=== PATIENT | female | born 1940 | race Caucasian/White ===

== ENCOUNTER → 2020-12-20 15:11 | Outpatient (BNVA) | payer MEDICARE, SELFPAY | PROVIDERS: Family Provider Family Medicine; PCP Family Medicine; Referring Provider Registered Nurse; Visit Provider Internal Medicine | DX: M81.0 Age-related osteoporosis without current pathological fracture (principal); N18.9 Chronic kidney disease, unspecified; F32.9 Major depressive disorder, single episode, unspecified; Z79.899 Other long term (current) drug therapy | CPT/HCPCS: 99204 ==

== ENCOUNTER 2020-12-28 14:08 | Outpatient (CLI) | payer MEDICARE, SELFPAY ==
--- NOTE | 2020-12-28 14:38 | XR_ITS ---
WS: [id number] DEXA (DUAL ENERGY X-RAY ABSORPTIOMETRY) Bone mineral density was performed using a [employer] machine. HISTORY: osteoporosis COMPARISON: None available. Left forearm BMD: 0.769 g/cm2. T score: -1.2 Z score: 1.5 Total hip BMD: Right: 0.832. T score: -1.4 Z score: 0.5 10 year probability of a major osteoporotic fracture is 29%. XR/XR DEXA axial skeleton* [id number] IMPRESSION: OSTEOPENIA based upon the WHO classification for females.
== END 2020-12-28 14:09 | disposition home or self-care (01) ==
PROVIDERS: PCP Registered Nurse; Visit Provider Internal Medicine
DX: M81.0 Age-related osteoporosis without current pathological fracture (principal); M85.89 Other specified disorders of bone density and structure, multiple sites
CPT/HCPCS: 77080

== ENCOUNTER → 2020-12-29 09:34 | Outpatient (BNVA) | payer MEDICARE, SELFPAY | PROVIDERS: PCP Registered Nurse; Referring Provider Registered Nurse; Visit Provider Orthopaedic Surgery | DX: M25.562 Pain in left knee (principal); M77.8 Other enthesopathies, not elsewhere classified | CPT/HCPCS: 73560; 73565 ==

== ENCOUNTER 2020-12-29 10:30 | Outpatient (CLI) | payer MEDICARE, SELFPAY ==
[2020-12-29 11:48] LABS: Anion Gap 14.1 (5-19); Blood Urea Nitrogen 24 mg/dL (8-23); Calcium 9.8 mg/dL (8.5-10.5); Carbon Dioxide 23 mmol/L (22-29); Chloride 106 mmol/L (98-107); Glucose 117 mg/dL (65-115); Osmolality Calculated 293 mOsm/kg (285-295); Potassium 4.1 mmol/L (3.5-5.1); Sodium 139 mmol/L (136-145); Thyroid Stimulating Hormone 2.58 uIU/mL (0.27-4.20)
[2020-12-29 12:02] LABS: Calcium 9.9 mg/dL (8.5-10.5)
[2020-12-29 12:44] LABS: Parathyroid Hormone 24.3 pg/mL (15-65)
== END 2020-12-29 10:31 | disposition home or self-care (01) ==
PROVIDERS: PCP Registered Nurse; Visit Provider Internal Medicine
DX: M81.0 Age-related osteoporosis without current pathological fracture (principal); N18.9 Chronic kidney disease, unspecified
CPT/HCPCS: 36415; 80048; 82310; 83970; 84443

== ENCOUNTER 2021-05-18 08:22 | Observation (INO) | payer MEDICARE, SELFPAY ==
[2021-05-18] VITALS (13 sets, daily range): BP systolic 106–150; BP diastolic 52–74; PULSE 87–113; RESP 16–19; TEMP 36.7–36.8; O2SAT 91–98; BMI 26.6
--- NOTE | 2021-05-18 08:25 | CT_ITS ---
WS: [id number] CT ABDOMEN PELVIS TECHNIQUE: Contrast-enhanced CT of the abdomen and pelvis with coronal and sagittal reformatted image s. CLINICAL INFORMATION: abd pain COMPARISON: None. DLP: 1476.[address] scans at [facility] use at least one of these dose optimization techniques: automated e xposure control; mA and/or kV adjustment per patient size (includes targeted exams where dose is matc hed to clinical indication); or iterative reconstruction. FINDINGS:No free fluid in the pelvis. Prior appendectomy. Normal sigmoid colon. No evidence of high-grade small or large bowel obstruction. A few air-fluid lev els in normal caliber transverse colon. Diffuse fatty infiltration liver. Normal portal vein and splenic vein. Normal spleen. Splenic granul omas. Large esophageal hiatal hernia with intrathoracic stomach. Subsegmental atelectasis in the lung bases. Normal pancreas. Adrenal glands are normal. Normal renal parenchymal enhancement. No hydronep hrosis. Left renal cyst measuring 2.5 cm. No Moderate aortic calcification. Left JEFF. Pedicle screw fixation L4-5 with interbody fusion graft.Small left adnexal cyst measuring 1 [address]/CT abdomen pelvis w con* [id number] IMPRESSION: 1. Mild diffuse fatty infiltration the liver. 2. Large esophageal hiatal hernia with partial intrathoracic stomach. 3. Normal sigmoid colon. A few air-fluid levels in the transverse colon. No ev idence of high-grade small or large bowel obstruction. 4. Prior appendectomy. 5. Normal caliber abdominal aorta. 6. No free fluid in the abdomen or pelvis. 7. Small left adnexal cyst measuring 1.7 x 1.6 cm
--- NOTE | 2021-05-18 08:25 | XR_ITS ---
WS: [id number] Portable AP upright chest, 05/18/2021 Clinical Data: dyspnea/cough Comparison: Portable chest, 02/07/2013. Findings: No nodules, masses or effusions are seen. The heart is normal. The pulmonary vascularity is not increased. No pneumonia or pneumothorax is seen. The aortic arch and descending aorta show minim al calcification. There is a large hiatal hernia behind the heart. XR/XR chest 1V portable [id number] Impression: 1. Atherosclerosis. 2. Large hiatal hernia.
--- NOTE | 2021-05-18 08:25 | ECG_ITS ---
[facility] Test Date: 2021-05-18 Pat Name: Pretty Caban Department: Room: Gender: Female Financial Representative: : 1940 Requested By: Porfirio Moreno Order Number: [id number] Sole MD: Jocelyn Jiménez M.D. Measurements Intervals [place] Rate: 89 P: 25 OR: 174 QRS: 50 QRSD: 79 T: 8 QT: 354 QTc: 431 Interpretive Statements SINUS RHYTHM SEPTAL MYOCARDIAL INFARCTION , OF INDETERMINATE AGE [40+ ms Q WAVE IN V1/V2] No previous ECG available for comparison Electronically Signed On 05-18-2021 17:03:48 CDT by Jocelyn Jiménez M.D. [id number]
--- NOTE | 2021-05-18 09:12 | W.ED.GIBLEED ---
HPI - GI Bleed General: Chief complaint: GI Bleed Stated complaint: GI BLEED Time Seen by Provider: 05/18/21 08:25 History of Present Illness: HPI Narrative: 81-year-old female presents emergency room complaining of midline aches stools for the last 12 hours. 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 She has had a history of these problems in the past. 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 MD complaint: melena Onset (ago): hour(s) (12) Relieving factors: none Exacerbating factors: none Context: history of GI bleed Associated symptoms: Denies abdominal pain, chills, easy bruising, epistaxis, fever(s), headache(s), malaise, nausea, other bleeding, poor appetite, rash, syncope, vomiting or weakness Treatments Prior to Arrival: none Review of Systems Const: Denies: fever(s), chills or malaise ENMT: Denies: epistaxis Card: Denies: syncope Resp: Denies: dyspnea, productive cough or non-productive cough GI: Denies: abdominal pain, nausea or vomiting : Denies: flank pain, difficulty voiding, dysuria, urinary frequency or urinary urgency Skin/Breast: Denies: rash Neuro: Denies: headache(s) Tre/Lymph: Denies: easy bruising [facility] ED PFSH: Medical History Anxiety and depression Arthritis Chronic anemia Chronic fatigue XOCHITL (generalized anxiety disorder) GERD (gastroesophageal reflux disease) Hyperlipidemia Hypertension Insomnia Intractable migraine without aura Moderate episode of recurrent major depressive disorder Seasonal affective disorder Surgical History History of carpal tunnel release History of total knee arthroplasty History of total right knee replacement (TKR) 11/01/2017 Family History Other Psychiatric illness Social History Smoking and tobacco status: never smoked Second hand smoke exposure: Yes Alcohol intake: current Alcohol intake frequency: holidays/special occasions only Physical Exam Const: COMMON NORMALS: no acute distress GENERAL APPEARANCE: cooperative and comfortable ORIENTATION/CONSCIOUSNESS: Yes awake, Yes oriented to person, Yes oriented to place and Yes oriented to time HENMT: COMMON NORMALS: normocephalic, atraumatic and hearing grossly normal bilaterally HEAD & SCALP: normocephalic and atraumatic Neck/C-Spine: COMMON NORMALS: no JVD Resp: COMMON NORMALS: normal respiratory effort, No retractions, No use of accessory muscles and clear to auscultation bilaterally AUSCULTATION: clear to auscultation bilaterally Cardio: COMMON NORMALS: no JVD, regular rate, regular rhythm and No murmurs present (Cardio) RATE: regular rate RHYTHM: regular rhythm GI: COMMON NORMALS: Soft to palpation and No hepatosplenomegaly present AUSCULTATION: Yes normoactive bowel sounds PALPATION: Yes Soft to palpation, No Tenderness to palpation present (GI), No Guarding due to palpation present (GI) and Yes No hepatosplenomegaly present Extremity: COMMON NORMALS: normal to inspection, capillary refill normal, no clubbing, cyanosis or edema, no calf tenderness and no pedal edema Neuro: SENSORIUM/ORIENTATION: Yes oriented to person, Yes oriented to place and Yes oriented to time Skin: COMMON NORMALS: no rashes or lesions noted GENERAL SKIN EXAM: no rashes or lesions noted Course Vital Signs: Vital signs: Vital Signs Temperature 98.0 F 05/18/21 08:41 Pulse Rate 87 05/18/21 10:20 Respiratory Rate 16 05/18/21 10:20 Blood Pressure 107/63 05/18/21 10:20 Pulse Oximetry 97 05/18/21 10:20 MDM - GI Bleed MDM Narrative: Medical decision making narrative: Reviewed imaging and labs on the chart. Reviewed with patient will go ahead and admit and transfuse discussed Dr. Oliver as well. Lab Data: Labs: Lab Results 05/18/21 05/18/21 05/18/21 Range/Units 09:10 09:10 09:10 WBC 8.9 (4.0-10.0) 10^3/ uL RBC 2.76 L (4.1-5.3) 10^6/u L Hgb 6.9 L (11.5-15.3) g/dL Hct 24.1 L (37.0-47.0) % MCV 87.3 (81-99) fl MCH 25.0 L (28.0-34.0) pg MCHC 28.6 L (30.0-36.0) g/dL RDW 16.4 H (12.1-15.1) % Plt Count 256 (130-400) 10^3/c mm MPV 9.3 (7.4-10.4) fL Neut % (Auto) 61.0 % Lymph % (Auto) 24.9 % [place] % (Auto) 7.8 % Eos % (Auto) 5.6 % Baso % (Auto) 0.4 % Neut # (Auto) 5.44 (1.8-7.7) 10^3/u L Lymph # (Auto) 2.2 (0.8-4.8) 10^3/u L [place] # (Auto) 0.7 (0.2-0.9) 10^3/u L Eos # (Auto) 0.5 (0.0-0.8) 10^3/u L Baso # (Auto) 0.0 (0.0-0.1) 10^3/u L Nucleated RBC % (a uto) 0 % Nucleated RBCs # 0.0 /100WBC PT (12.1-14.9) SECO NDS INR (0.8-1.2) APTT (23.9-36.7) SECO NDS Sodium 140 (136-145) mmol/L Potassium 3.9 (3.5-5.1) mmol/L Chloride 107 (98-107) mmol/L Carbon Dioxide 22 (22-29) mmol/L Anion Gap 14.9 (5-19) BUN 28 H (8-23) mg/dL Creatinine 0.9 (0.5-0.9) mg/dL GFR Calculation Not Reportable Glucose 151 H (65-115) mg/dL Calculated Osmolal ity 298 H (285-295) mOsm/k g Lactic Acid 1.5 (0.5-2.2) mmol/L Calcium 9.3 (8.5-10.5) mg/dL Total Bilirubin 0.2 (0.15-1.2) mg/dL AST 10 (0-32) U/L ALT 9 (0-33) U/L Alkaline Phosphata se 59 (35-105) IU/L Total Protein 6.7 (6.6-8.7) g/dL Albumin 3.8 (3.5-5.2) g/dL Globulin 2.9 (1.3-4.6) g/dL Lipase 37 (13-60) U/L Urine Color (Yellow) Urine Appearance (CLEAR) Urine pH (5-7) Ur Specific Gravit y (1.005-1.030) Urine Protein (Negative) Urine Glucose (UA) (Normal) Urine Ketones (Negative) Urine Blood (Negative) Urine Nitrate (Negative) Urine Bilirubin (Negative) Urine Urobilinogen (Negative) mg/dL Ur Leukocyte Ritu ase (Negative) Blood Type Rho(D) Type Antibody Screen Crossmatch 05/18/21 05/18/21 05/18/21 Range/Units 09:10 09:10 10:13 WBC (4.0-10.0) 10^3/ uL RBC (4.1-5.3) 10^6/u L Hgb (11.5-15.3) g/dL Hct (37.0-47.0) % MCV (81-99) fl MCH (28.0-34.0) pg MCHC (30.0-36.0) g/dL RDW (12.1-15.1) % Plt Count (130-400) 10^3/c mm MPV (7.4-10.4) fL Neut % (Auto) % Lymph % (Auto) % [place] % (Auto) % Eos % (Auto) % Baso % (Auto) % Neut # (Auto) (1.8-7.7) 10^3/u L Lymph # (Auto) (0.8-4.8) 10^3/u L [place] # (Auto) (0.2-0.9) 10^3/u L Eos # (Auto) (0.0-0.8) 10^3/u L Baso # (Auto) (0.0-0.1) 10^3/u L Nucleated RBC % (a uto) % Nucleated RBCs # /100WBC PT 13.20 (12.1-14.9) SECO NDS INR 0.97 (0.8-1.2) APTT 23.0 L (23.9-36.7) SECO NDS Sodium (136-145) mmol/L Potassium (3.5-5.1) mmol/L Chloride (98-107) mmol/L Carbon Dioxide (22-29) mmol/L Anion Gap (5-19) BUN (8-23) mg/dL Creatinine (0.5-0.9) mg/dL GFR Calculation Glucose (65-115) mg/dL Calculated Osmolal ity (285-295) mOsm/k g Lactic Acid (0.5-2.2) mmol/L Calcium (8.5-10.5) mg/dL Total Bilirubin (0.15-1.2) mg/dL AST (0-32) U/L ALT (0-33) U/L Alkaline Phosphata se (35-105) IU/L Total Protein (6.6-8.7) g/dL Albumin (3.5-5.2) g/dL Globulin (1.3-4.6) g/dL Lipase (13-60) U/L Urine Color Yellow (Yellow) Urine Appearance Clear (CLEAR) Urine pH 5 (5-7) Ur Specific Gravit y 1.015 (1.005-1.030) Urine Protein Neg (Negative) Urine Glucose (UA) Norm (Normal) Urine Ketones Negative (Negative) Urine Blood Neg (Negative) Urine Nitrate Negative (Negative) Urine Bilirubin Neg (Negative) Urine Urobilinogen Norm (Negative) mg/dL Ur Leukocyte Ritu ase Negative (Negative) Blood Type A Positive Rho(D) Type Positive Antibody Screen Negative Crossmatch See Detail Discharge Plan Discharge Patient Disposition: Admitted As Inpatient Clinical Impression: Melena, Anemia, Arteriovenous malformation small bowel Condition: Stable Coding Level of Care Code ED Lehr Cutter for Nadjag Fwd Exam Comprehensive
[2021-05-18 09:29] LABS: Basophils % 0.4 %; Eosinophils # 0.5 10^3/uL (0.0-0.8); Eosinophils % 5.6 %; Hematocrit 24.1 % (37.0-47.0); Hemoglobin 6.9 g/dL (11.5-15.3); Lymphocytes # 2.2 10^3/uL (0.8-4.8); Lymphocytes % 24.9 %; Mean Corpuscular HGB Conc 28.6 g/dL (30.0-36.0); Mean Corpuscular Volume 87.3 fl (81-99); Mean Platelet Volume 9.3 fL (7.4-10.4); Monocytes # 0.7 10^3/uL (0.2-0.9); Monocytes % 7.8 %; Neutrophils # 5.44 10^3/uL (1.8-7.7); Nucleated Red Blood Cells % 0 %; Platelet Count 256 10^3/cmm (130-400); Red Blood Count 2.76 10^6/uL (4.1-5.3); Red Cell Distribution Width 16.4 % (12.1-15.1); White Blood Count 8.9 10^3/uL (4.0-10.0)
[2021-05-18 09:41] LABS: INR 0.97 (0.8-1.2)
[2021-05-18 09:45] LABS: Lactic Sepsis W/Reflex 1.5 mmol/L (0.5-2.2)
[2021-05-18 09:47] LABS: Alanine Aminotransferase 9 U/L (0-33); Albumin Level 3.8 g/dL (3.5-5.2); Alkaline Phosphatase 59 IU/L (35-105); Anion Gap 14.9 (5-19); Aspartate Amino Transferase 10 U/L (0-32); Blood Urea Nitrogen 28 mg/dL (8-23); Calcium 9.3 mg/dL (8.5-10.5); Carbon Dioxide 22 mmol/L (22-29); Chloride 107 mmol/L (98-107); Globulin 2.9 g/dL (1.3-4.6); Glucose 151 mg/dL (65-115); Lipase 37 U/L (13-60); Osmolality Calculated 298 mOsm/kg (285-295); Potassium 3.9 mmol/L (3.5-5.1); Sodium 140 mmol/L (136-145); Total Bilirubin 0.2 mg/dL (0.15-1.2); Total Protein 6.7 g/dL (6.6-8.7)
[2021-05-18] MEDS: pantoprazole 40 mg SDV 80 MG IVP (10:14)
[2021-05-18 10:20] LABS: Add Urine Microscopic? NO; Charge for UA Resulting for Rev
[2021-05-18 10:21] LABS: Bilirubin Urine Neg (Negative); Blood Urine Neg (Negative); Glucose Urine UA Norm (Normal); Ketones Urine Negative (Negative); Leukocyte Esterase Urine Negative (Negative); Nitrate Urine Negative (Negative); Protein Urine Neg (Negative); Specific Gravity, Urine 1.015 (1.005-1.030); Urine Appearance Clear (CLEAR); Urine Color Yellow (Yellow); Urobilinogen Urine Norm (Negative); pH Urine 5 (5-7)
[2021-05-18] MEDS: iohexol 300 mg/mL 100 mL Btl IV (10:33)
--- NOTE | 2021-05-18 11:42 | PC.PHAR ---
PTS VERIFIED MOST OF THE PTS MEDICATIONS-PTS STATES THE PT TAKES HER MEDICATIONS LIKE THE BOTTLE HAS SO WHATEVER [employer] FILLS IS WHAT THE PT TAKES PTS ALSO BROUGHT IN A MED LIST FROM WHEN THE PT WAS IN [place] THE HOSPITAL BUT THAT LIST DIDNT HAVE ALL THE PTS MEDICATIONS LISTED-CALLED [employer] AND GOT THE LIST THEY FILL-NOTES ARE MADE IN THE PHARMACY COMMENTS
--- NOTE | 2021-05-18 12:08 | PM.HP ---
Providers/Chief Complaint Primary Care Provider: CALVIN Jenkins Chief Complaint: GI BLEED History of Present Illness Niels Caban is a 81 year old female with hx of GERD, IBS, hiatal hernia and upper GI bleed. She reports she began to feel weak and short of breath yesterday afternoon and had a black tarry stool yesterday evening. She again reported melena this morning and came to the ER. She has a history of GI bleeds, the last episode was about 3 years ago and required transfusion. At that time she was found to have bleeding around her hiatal hernia on upper GI endoscopy. Chest x-ray in March showed worsening of the hiatal hernia. She has had no change in diet and only recalls 2 bad falls this week. She denies abdominal pain, hematochezia, and NSAID use. She is not taking anticoagulants. No hematemesis. Review of Systems General: Reports: 10 or more systems reviewed and unremarkable except in HPI and below Const: Denies: fever(s) Eyes: Denies: change in vision ENMT: Denies: throat pain Card: Denies: chest pain, palpitations or irregular heart rhythm Resp: Reports: dyspnea; Denies: productive cough or wheezing GI: Reports: heartburn, diarrhea and melena; Denies: abdominal pain, nausea, vomiting, hematemesis, coffee ground emesis or constipation : Denies: flank pain Musc: Denies: neck pain, back pain or extremity pain Skin/Breast: Denies: rash Neuro: Denies: headache(s) Psych: Denies: anxiety Endo: Denies: polyuria Tre/Lymph: Denies: easy bruising All/Imm: Denies: urticaria Medications/Allergies Home Medications Medication Instructions Recorded Confirmed Last Taken Type alprazolam 0.5 mg tablet 0.5 mg PO TID PRN tab 12/20/20 05/18/21 Unknown History amlodipine 5 mg tablet 5 mg PO DAILY 12/20/20 05/18/21 Unknown History aripiprazole 2 mg tablet 2 mg PO DAILY 12/20/20 05/18/21 Unknown History ascorbic acid (vitamin C) 500 mg 500 mg PO DAILY cap 12/20/20 05/18/21 Unknown History capsule dicyclomine 20 mg tablet 40 mg PO BID 12/20/20 05/18/21 Unknown History duloxetine 60 mg capsule,delayed 60 mg PO BID 12/20/20 05/18/21 Unknown History release lisinopril 20 mg tablet 20 mg PO DAILY 12/20/20 05/18/21 Unknown History loratadine 10 mg capsule 10 mg PO DAILY PRN 12/20/20 05/18/21 Unknown History mirtazapine 45 mg tablet 45 mg PO DAILY 12/20/20 05/18/21 Unknown History pantoprazole 40 mg tablet,delayed 40 mg PO BID 12/20/20 05/18/21 Unknown History release simvastatin 40 mg tablet 40 mg PO DAILY 12/20/20 05/18/21 Unknown History tizanidine 2 mg capsule 2 mg PO TID PRN 12/20/20 05/18/21 Unknown History topiramate 50 mg tablet See Rx Instructions .ROUTE .COMPLEX 12/20/20 05/18/21 Unknown History Probiotic 1 cap PO DAILY 05/18/21 05/18/21 Unknown History albuterol sulfate [ProAir HFA] 2 puff INHALATION Q6H PRN 05/18/21 05/18/21 Unknown History benzonatate 100 mg PO TID PRN 05/18/21 05/18/21 Unknown History calcium carbonate-vitamin D3 1 tab PO DAILY 05/18/21 05/18/21 Unknown History [Calcium + D] coffee xt-phosphatidyl serine 1 cap PO DAILY 05/18/21 05/18/21 Unknown History [Neuriva Original] fluticasone propionate [Flonase] 2 spray INTRANASAL DAILY PRN 05/18/21 05/18/21 Unknown History hydrochlorothiazide 12.5 - 25 mg PO DAILY 05/18/21 05/18/21 Unknown History trospium 20 mg PO DAILY 05/18/21 05/18/21 Unknown History vitamin E 1 cap PO DAILY 05/18/21 05/18/21 Unknown History Allergies Allergy/AdvReac Type Severity Reaction Status Date / Time aspirin [From Radha Aspirin] Allergy bleeding Verified 05/18/21 11:41 PFSH Acute PFSH: Medical History (Updated 05/18/21 @ 13:34 by Michael Gay MD) Anxiety and depression Arthritis Chronic anemia Chronic fatigue XOCHITL (generalized anxiety disorder) GERD (gastroesophageal reflux disease) Hyperlipidemia Hypertension Insomnia Intractable migraine without aura Moderate episode of recurrent major depressive disorder Seasonal affective disorder Surgical History History of carpal tunnel release History of total knee arthroplasty History of total right knee replacement (TKR) 11/01/2017 Family History Other Psychiatric illness Social History Smoking and tobacco status: never smoked Second hand smoke exposure: Yes Alcohol intake: current Alcohol intake frequency: holidays/special occasions only Vitals/I&O/Wt Last Vital Signs Temp 98.0 F 05/18/21 08:41 Pulse 87 05/18/21 10:20 Resp 16 05/18/21 10:20 BP 107/63 05/18/21 10:20 Pulse Ox 97 05/18/21 10:20 Weight last 48 hrs Weight 70.307 kg Physical Exam Narrative: EXAM NARRATIVE: General exam pale female in no apparent distress HEENT pupils reactive, oropharynx clear Neck supple no lymphadenopathy or JVD Cardio regular rate and rhythm no murmurs Respiratory clear to auscultation bilaterally no wheezes GI soft nontender with positive bowel sounds no organomegaly Extremities no cyanosis, clubbing. 1+ edema in lower extremities Skin no rash deferred Neuro: No obvious focal deficits. Data : 05/18/21 09:10 05/18/21 09:10 Other data: Blood type a positiveBlood type: A positive PT 13.20 INR 0.97 PTT 23 13.20 seconds ECG normal sinus rhythm Chest x-ray large hiatal hernia UA normal A&P Assessment and plan (1) Melena: Patient reports black tarry stools consistent with upper GI bleeding She has history of bleeding from her hiatal hernia in the past, possible Cory's ulcers. N.p.o. Protonix 40 mg IV every 12 hours Hydration Surgery consultation for possible EGD Status: Acute (2) Anemia: Transfusion 1 unit packed red blood cells Repeat hemoglobin following Further transfusions may be needed History consistent with acute blood loss anemia, but will check anemia panel as well. Status: Acute (3) GERD (gastroesophageal reflux disease): Protonix as above Status: Acute (4) Hypertension: Hold antihypertensives currently secondary to ongoing bleeding. Restart as indicated. Status: Acute Additional A&P Information Multiple other medical problems as outlined in the patient's past medical history. Full code SCDs for DVT prophylaxis, anticoagulation contraindicated secondary to GI bleeding. Attestations Medical Necessity Statement*: Will need greater than 2 midnight stay secondary to GI bleeding Time Spent in Patient Care: Greater than 35 minutes Coding Level of Care Code Acute Athletic Events Scorer for Chg Fwd Diagnoses Melena K92.1 Anemia D64.9 GERD (gastroesophageal reflux disease) K21.9 Hypertension I10
[2021-05-18 12:51] LABS: Ferritin 8 ng/mL (15-150); Iron 17 ug/dL (37-145); Percent Saturation 4.2 % (20-50); Total Iron Binding Capacity 396 mcg/dl; Unsaturated Iron Binding 379 ug/dL (112-347)
[2021-05-18 13:06] LABS: Vitamin B12 831 pg/mL (232-1245)
[2021-05-18 13:40] LABS: Folate Level > 20.0 ng/mL (4.8-37.3)
--- NOTE | 2021-05-18 15:25 | P.CONIM_ITS ---
Providers/Reason For Consult Consulting Physician/Specialty*: General Surgery Ryan Hernandez MD Reason for Consult*: Melena, anemia, history of multiple GI bleeding episodes. Requesting Physician: Genaro Gay Primary Care Provider: CALVIN Jenkins History of Present Illness History of Present Illness Niels Caban is a 81 year old female who developed black tarry stool last evening. She says that she was feeling dizzy, weak, and somewhat short of breath. This is happened to her multiple times in the past and she has been evaluated with what was felt to be an upper GI bleed on multiple occasions in [place], [place] and the [facility]. It sounds like pill endoscopy was even done at one point. She has been found to have a hiatal hernia that she says has gotten larger more recently. She denies any NSAID use. She has a proton pump inhibitor on her medication list but it still unclear whether or not she is taking this daily. It has been several years since she was looked at endoscopically and I was asked to discuss another EGD with her. Review of Systems General: Reports: 10 or more systems reviewed and unremarkable except in HPI and below Const: Denies: fever(s) Resp: Reports: dyspnea GI: Reports: melena; Denies: abdominal pain, nausea, vomiting or hematochezia Neuro: Reports: dizziness Meds/Allergies Home Medications and Allergies Home Medications Medication Instructions Recorded Confirmed Last Taken Type alprazolam 0.5 mg tablet 0.5 mg PO TID PRN tab 12/20/20 05/18/21 Unknown History amlodipine 5 mg tablet 5 mg PO DAILY 12/20/20 05/18/21 Unknown History aripiprazole 2 mg tablet 2 mg PO DAILY 12/20/20 05/18/21 Unknown History ascorbic acid (vitamin C) 500 mg 500 mg PO DAILY cap 12/20/20 05/18/21 Unknown History capsule dicyclomine 20 mg tablet 40 mg PO BID 12/20/20 05/18/21 Unknown History duloxetine 60 mg capsule,delayed 60 mg PO BID 12/20/20 05/18/21 Unknown History release lisinopril 20 mg tablet 20 mg PO DAILY 12/20/20 05/18/21 Unknown History loratadine 10 mg capsule 10 mg PO DAILY PRN 12/20/20 05/18/21 Unknown History mirtazapine 45 mg tablet 45 mg PO DAILY 12/20/20 05/18/21 Unknown History pantoprazole 40 mg tablet,delayed 40 mg PO BID 12/20/20 05/18/21 Unknown History release simvastatin 40 mg tablet 40 mg PO DAILY 12/20/20 05/18/21 Unknown History tizanidine 2 mg capsule 2 mg PO TID PRN 12/20/20 05/18/21 Unknown History topiramate 50 mg tablet See Rx Instructions .ROUTE .COMPLEX 12/20/20 05/18/21 Unknown History Probiotic 1 cap PO DAILY 05/18/21 05/18/21 Unknown History albuterol sulfate [ProAir HFA] 2 puff INHALATION Q6H PRN 05/18/21 05/18/21 Unknown History benzonatate 100 mg PO TID PRN 05/18/21 05/18/21 Unknown History calcium carbonate-vitamin D3 1 tab PO DAILY 05/18/21 05/18/21 Unknown History [Calcium + D] coffee xt-phosphatidyl serine 1 cap PO DAILY 05/18/21 05/18/21 Unknown History [Neuriva Original] fluticasone propionate [Flonase] 2 spray INTRANASAL DAILY PRN 05/18/21 05/18/21 Unknown History hydrochlorothiazide 12.5 - 25 mg PO DAILY 05/18/21 05/18/21 Unknown History trospium 20 mg PO DAILY 05/18/21 05/18/21 Unknown History vitamin E 1 cap PO DAILY 05/18/21 05/18/21 Unknown History Allergies Allergy/AdvReac Type Severity Reaction Status Date / Time aspirin [From Radha Aspirin] Allergy bleeding Verified 05/18/21 11:41 PFSH Acute PFSH: Medical History (Updated 05/18/21 @ 15:31 by Ryan Hernandez MD) Anxiety and depression Arthritis Chronic anemia Chronic fatigue XOCHITL (generalized anxiety disorder) GERD (gastroesophageal reflux disease) Hiatal hernia Hyperlipidemia Hypertension Insomnia Intractable migraine without aura Moderate episode of recurrent major depressive disorder Seasonal affective disorder Surgical History History of carpal tunnel release History of total knee arthroplasty History of total right knee replacement (TKR) 11/01/2017 Family History Other Psychiatric illness Social History Smoking and tobacco status: never smoked Second hand smoke exposure: Yes Alcohol intake: current Alcohol intake frequency: holidays/special occasions only Vitals/I&O/Wt Last Vital Signs Temp 98.1 F 05/18/21 13:51 Pulse 91 05/18/21 15:23 Resp 18 05/18/21 15:23 BP 115/65 05/18/21 15:23 Pulse Ox 93 05/18/21 15:23 05/18/21 05/18/21 05/18/21 06:59 14:59 22:59 Intake Total 0 / 0 Balance 0 / 0 Weight last 48 hrs Weight 155 lb Physical Exam Narrative: EXAM NARRATIVE: The patient was encountered in her room in the emergency department, waiting for a bed to open up upstairs. She does not appear to be in any acute distress and in fact is sleeping when I walk in the room. She was hard of hearing but was easily arousable. The pupils seem equal. No carotid bruits are heard. The lungs are clear. The heart seems regular. The abdomen is moderately obese but is soft. She has no appreciable tenderness and no obvious masses. The extremities reveal no significant edema. Neurologically the patient appears to be grossly intact. A&P Assessment and plan (1) Melena: The patient has had melena since last night. She has had some shortness of breath and dizziness, but she has had no abdominal symptoms. She is anemic and is currently being transfused. She has had multiple endoscopic/diagnostic procedures in the past. I once again discussed an EGD with the patient. She is in favor of proceeding. The rare risks of the procedure were gone over and she seems to understand. I am going to make sure the patient is n.p.o. after midnight tonight. We will proceed with an EGD tomorrow morning. Status: Acute (2) Anemia: Status: Acute (3) History of GI bleed: Status: Acute (4) Hiatal hernia: Status: Acute (5) GERD (gastroesophageal reflux disease): Status: Acute Consult Attestations Medical Necessity Statement: See admitting service's notation. Coding Level of Care Code Acute Railroad Wheels And Axle Inspector for [facility] Diagnoses Melena K92.1 Anemia D64.9 History of GI bleed Z87.19 Hiatal hernia K44.9 GERD (gastroesophageal reflux disease) K21.9
[2021-05-18] MEDS: sodium chloride 0.9% 1,000 ML 75 ML IV (15:51)
[2021-05-18] MEDS: sodium chloride 0.9% (100 ml) 100 ML 50 ML (18:24)
[2021-05-18 19:24] LABS: Hematocrit 26.9 % (37.0-47.0); Hemoglobin 8.1 g/dL (11.5-15.3)
[2021-05-18] MEDS: topiramate 100 mg Tablet PO (20:02)
[2021-05-18] MEDS: duloxetine 60 mg Capsule PO (20:02)
[2021-05-18] MEDS: pantoprazole 40 mg SDV IVP (21:15)
[2021-05-19] VITALS (11 sets, daily range): BP systolic 103–149; BP diastolic 54–79; PULSE 68–103; RESP 16–20; TEMP 36.4–37.3; O2SAT 92–98
[2021-05-19] MEDS: sodium chloride 0.9% 1,000 ML 75 ML IV (03:55)
[2021-05-19 05:51] LABS: Basophils # 0.1 10^3/uL (0.0-0.1); Basophils % 0.8 %; Eosinophils # 0.6 10^3/uL (0.0-0.8); Eosinophils % 6.3 %; Hematocrit 29.7 % (37.0-47.0); Hemoglobin 8.9 g/dL (11.5-15.3); Lymphocytes # 2.5 10^3/uL (0.8-4.8); Lymphocytes % 28.8 %; Mean Corpuscular Hemoglobin 26.7 pg (28.0-34.0); Mean Corpuscular Volume 89.2 fl (81-99); Mean Platelet Volume 9.3 fL (7.4-10.4); Monocytes # 0.8 10^3/uL (0.2-0.9); Monocytes % 9.5 %; Neutrophils # 4.72 10^3/uL (1.8-7.7); Neutrophils % 54.3 %; Nucleated Red Blood Cells % 0 %; Platelet Count 247 10^3/cmm (130-400); Red Blood Count 3.33 10^6/uL (4.1-5.3); Red Cell Distribution Width 16.1 % (12.1-15.1); White Blood Count 8.7 10^3/uL (4.0-10.0)
[2021-05-19 06:11] LABS: Alanine Aminotransferase 10 U/L (0-33); Alkaline Phosphatase 70 IU/L (35-105); Aspartate Amino Transferase 13 U/L (0-32); Blood Urea Nitrogen 19 mg/dL (8-23); Calcium 9.2 mg/dL (8.5-10.5); Carbon Dioxide 24 mmol/L (22-29); Chloride 106 mmol/L (98-107); Globulin 2.9 g/dL (1.3-4.6); Glucose 107 mg/dL (65-115); Osmolality Calculated 297 mOsm/kg (285-295); Sodium 142 mmol/L (136-145); Total Bilirubin 0.2 mg/dL (0.15-1.2); Total Protein 6.9 g/dL (6.6-8.7)
[2021-05-19] MEDS: sodium chloride 0.9% 1,000 ML 30 ML IV (07:37)
--- NOTE | 2021-05-19 08:05 | P.ANESASSM_ITS ---
Pre-Anesthetic Assessment Pre-Anesthetic Assessment: Height/Weight: Height 1.63 m Weight 70.307 kg Temp Pulse Resp BP Pulse Ox 97.6 F 103 H 20 H 149/79 93 05/19/21 07:04 05/19/21 07:04 05/19/21 07:04 05/19/21 07:04 05/19/21 07:04 Preop Diagnosis: GI bleed Proposed Procedure: Operation Date: 05/19/21 08:00 Proposed Procedures p EGD(Not Applicable) - Ryan Hernandez MD Familial anesthetic complications: none Was Beta Reilly taken within 24 hours: N/A Was Clonidine taken within 24 hours: N/A Last intake: Intake Last Liquid Date 05/18/21 Last Liquid Time 06:00 Last Solid Date 05/18/21 Last Solid Time 06:00 Last Intake: 23:00 Social: Social History: No alcohol and No tobacco Exam: Pre-Anes Outpt Exam: alert, oriented x 3, clear to auscultation bilaterally and regular rate & rhythm Airway: Submandibular: WNL Cervical ROM: WNL MP: 1 Dentition: False Pulmonary: Pulmonary: SOB CV/HEM: CV/HEM: Anemia and HTN : : None reported Hepatic: Hepatic: None reported GI: GI: GERD and Hiatus hernia Metabolic: Metabolic: None reported Musc/skel: Musc/skel: Lower Back Pain Neuropsych: Neuropsych: Anxiety and Depression Anesthetic Plan: ASA status: 3 Anesthesia: MAC Meds/Allergies Current Medications: Current Medications Generic Name Dose Route Start Last Admin Trade Name Freq PRN Reason Stop Dose Admin Duloxetine HCl 60 mg 05/18/21 18:00 05/18/21 20:02 Duloxetine 60 Mg Capsule PO 60 mg BID BETSY Administration Sodium Chloride 1,000 mls @ 75 ml s/hr 05/18/21 13:45 05/19/21 03:55 Sodium Chloride 0.9% IV 75 mls/hr .[id number] BETSY Administration Sodium Chloride 1,000 mls @ 30 ml s/hr 05/19/21 07:30 05/19/21 07:37 Sodium Chloride 0.9% IV 05/20/21 07:29 30 mls/hr .Q24H BETSY Administration Pantoprazole Sodiu m 40 mg 05/18/21 22:00 05/18/21 21:15 Pantoprazole 40 Mg Sdv IVP 40 mg Q12H BETSY Administration Topiramate 100 mg 05/18/21 20:00 05/18/21 20:02 Topiramate 100 M g Tablet PO 100 mg QPM BETSY Administration Topiramate 50 mg 05/19/21 06:00 05/19/21 05:08 Topiramate 100 M g Tablet PO Not Given QAM BETSY PFSH Anesthesia PFSH: Medical History (Updated 05/18/21 @ 15:31 by Ryan Hernandez MD) Anxiety and depression Arthritis Chronic anemia Chronic fatigue XOCHITL (generalized anxiety disorder) GERD (gastroesophageal reflux disease) Hiatal hernia Hyperlipidemia Hypertension Insomnia Intractable migraine without aura Moderate episode of recurrent major depressive disorder Seasonal affective disorder Surgical History History of carpal tunnel release History of total knee arthroplasty History of total right knee replacement (TKR) 11/01/2017 Family History Other Psychiatric illness Social History Smoking and tobacco status: never smoked Second hand smoke exposure: Yes Alcohol intake: current Alcohol intake frequency: holidays/special occasions only Data Anesthesia CBC & Chem 7: 05/19/21 04:57 05/19/21 04:57 Other Labs: Laboratory Results - last 48 hr 05/18/21 05/18/21 05/18/21 09:10 09:10 09:10 WBC 8.9 RBC 2.76 L Hgb 6.9 L Hct 24.1 L MCV 87.3 MCH 25.0 L MCHC 28.6 L RDW 16.4 H Plt Count 256 MPV 9.3 Neut % (Auto) 61.0 Lymph % (Auto) 24.9 Ashley % (Auto) 7.8 Eos % (Auto) 5.6 Baso % (Auto) 0.4 Neut # (Auto) 5.44 Lymph # (Auto) 2.2 Ashley # (Auto) 0.7 Eos # (Auto) 0.5 Baso # (Auto) 0.0 Nucleated RBC % (auto) 0 Nucleated RBCs # 0.0 PT INR APTT Sodium 140 Potassium 3.9 Chloride 107 Carbon Dioxide 22 Anion Gap 14.9 BUN 28 H Creatinine 0.9 GFR Calculation Not Reportable Glucose 151 H Calculated Osmolality 298 H Lactic Acid 1.5 Calcium 9.3 Magnesium Iron TIBC % Saturation Unsat Iron Binding Ferritin Total Bilirubin 0.2 AST 10 ALT 9 Alkaline Phosphatase 59 Total Protein 6.7 Albumin 3.8 Globulin 2.9 Lipase 37 Vitamin B12 Folate Urine Color Urine Appearance Urine pH Ur Specific [place] Urine Protein Urine Glucose (UA) Urine Ketones Urine Blood Urine Nitrate Urine Bilirubin Urine Urobilinogen Ur Leukocyte Esterase Blood Type Rho(D) Type Antibody Screen Crossmatch 05/18/21 05/18/21 05/18/21 09:10 09:10 09:10 WBC RBC Hgb Hct MCV MCH MCHC RDW Plt Count MPV Neut % (Auto) Lymph % (Auto) [place] % (Auto) Eos % (Auto) Baso % (Auto) Neut # (Auto) Lymph # (Auto) [place] # (Auto) Eos # (Auto) Baso # (Auto) Nucleated RBC % (auto) Nucleated RBCs # PT 13.20 INR 0.97 APTT 23.0 L Sodium Potassium Chloride Carbon Dioxide Anion Gap BUN Creatinine GFR Calculation Glucose Calculated Osmolality Lactic Acid Calcium Magnesium Iron 17 L TIBC 396 % Saturation 4.2 L Unsat Iron Binding 379 H Ferritin 8 L Total Bilirubin AST ALT Alkaline Phosphatase Total Protein Albumin Globulin Lipase Vitamin B12 831 Folate Urine Color Urine Appearance Urine pH Ur Specific [place] Urine Protein Urine Glucose (UA) Urine Ketones Urine Blood Urine Nitrate Urine Bilirubin Urine Urobilinogen Ur Leukocyte Esterase Blood Type A Positive Rho(D) Type Positive Antibody Screen Negative Crossmatch See Detail 05/18/21 05/18/21 05/18/21 09:10 10:13 18:37 WBC RBC Hgb 8.1 L Hct 26.9 L MCV MCH MCHC RDW Plt Count MPV Neut % (Auto) Lymph % (Auto) [place] % (Auto) Eos % (Auto) Baso % (Auto) Neut # (Auto) Lymph # (Auto) Ashley # (Auto) Eos # (Auto) Baso # (Auto) Nucleated RBC % (auto) Nucleated RBCs # PT INR APTT Sodium Potassium Chloride Carbon Dioxide Anion Gap BUN Creatinine GFR Calculation Glucose Calculated Osmolality Lactic Acid Calcium Magnesium Iron TIBC % Saturation Unsat Iron Binding Ferritin Total Bilirubin AST ALT Alkaline Phosphatase Total Protein Albumin Globulin Lipase Vitamin B12 Folate > 20.0 Urine Color Yellow Urine Appearance Clear Urine pH 5 Ur Specific [place] 1.015 Urine Protein Neg Urine Glucose (UA) Norm Urine Ketones Negative Urine Blood Neg Urine Nitrate Negative Urine Bilirubin Neg Urine Urobilinogen Norm Ur Leukocyte Esterase Negative Blood Type Rho(D) Type Antibody Screen Crossmatch 05/19/21 05/19/21 04:57 04:57 WBC 8.7 RBC 3.33 L Hgb 8.9 L Hct 29.7 L MCV 89.2 MCH 26.7 L MCHC 30.0 RDW 16.1 H Plt Count 247 MPV 9.3 Neut % (Auto) 54.3 Lymph % (Auto) 28.8 Ashley % (Auto) 9.5 Eos % (Auto) 6.3 Baso % (Auto) 0.8 Neut # (Auto) 4.72 Lymph # (Auto) 2.5 Ashley # (Auto) 0.8 Eos # (Auto) 0.6 Baso # (Auto) 0.1 Nucleated RBC % (auto) 0 Nucleated RBCs # 0.0 PT INR APTT Sodium 142 Potassium 4.0 Chloride 106 Carbon Dioxide 24 Anion Gap 16.0 BUN 19 Creatinine 0.8 GFR Calculation Not Reportable Glucose 107 Calculated Osmolality 297 H Lactic Acid Calcium 9.2 Magnesium 2.0 Iron TIBC % Saturation Unsat Iron Binding Ferritin Total Bilirubin 0.2 AST 13 ALT 10 Alkaline Phosphatase 70 Total Protein 6.9 Albumin 4.0 Globulin 2.9 Lipase Vitamin B12 Folate Urine Color Urine Appearance Urine pH Ur Specific [place] Urine Protein Urine Glucose (UA) Urine Ketones Urine Blood Urine Nitrate Urine Bilirubin Urine Urobilinogen Ur Leukocyte Esterase Blood Type Rho(D) Type Antibody Screen Crossmatch Cardiac Studies: No Data to Display
--- NOTE | 2021-05-19 08:06 | PM.PN ---
Subjective Subjective: Interval history: The patient is feeling better this morning. She says she is ready to proceed with her EGD. Vitals/I&O/Wt Last Vital Signs Temp 97.6 F 05/19/21 07:04 Pulse 103 H 05/19/21 07:04 Resp 20 H 05/19/21 07:04 BP 149/79 05/19/21 07:04 Pulse Ox 93 05/19/21 07:04 05/18/21 05/19/21 05/19/21 22:59 06:59 14:59 Intake Total 370 / 1275 905 / 1275 Balance 370 / 1275 905 / 1275 Weight last 48 hrs Weight 155 lb Physical Exam Narrative: EXAM NARRATIVE: Abdomen remains soft and nontender. Data : 05/19/21 04:57 05/19/21 04:57 A&P Assessment and plan (1) Melena: Proceeding with EGD this morning. Status: Acute (2) Anemia: Status: Acute (3) History of GI bleed: Status: Acute (4) Hiatal hernia: Status: Acute Attestations Medical Necessity Statement*: See admitting service's notation. Coding Level of Care Code Acute Finance Associate for [facility] Fwd Diagnoses Melena K92.1 Anemia D64.9 History of GI bleed Z87.19 Hiatal hernia K44.9
--- NOTE | 2021-05-19 10:29 | PC.CHAP ---
Pastoral Care Encounter/Spiritual Assessment Type of Contact [] Declined group insurance specialist visit [] Patient/Family/Request visit [] Outpatient visit [] Follow-up visit [] Physician referral [] Code/Alert [x] Routine visit [] Staff referral [] Actively dying [] Patient sleeping [] Family support [] [] Out of room [] Palliative care [] [x] Receiving care in room [] Pre-surgical visit [] Trauma [x] Long length of stay [] ICU visit [] Other: Relational/Emotional Strength [x] Patient feels connected with others/family/visitors/staff [] Distress [] Loneliness/isolation [] Abandonment Spirituality of Patient [x] Person of [place]uy [] Attends Yazidism of their [place] [x] Believes in Prayer [] Reads Bible or Quaker materials [] There are Spiritual issues to be addressed All Purpose Clerk Interventions [x] Prayer [x] Active listening [x] Non-anxious presence [x] Spiritual/emotional support [] Crisis/trauma care [x] Spiritual counseling [] Bereavement support [] Provided bereavement packet [] Provided Bible/devotional materials [] Provided toy/stuffed animal, coloring book to patient or family member [] Provided Communion [] Anointing/[place] [] Salvation [x] Completed spiritual assessment [] Other: Impact on Illness or Injury [] Angry [x] Fearful [] Anxious [] Often cries [] Exhaustion [x] Unable to work [] Unable to attend jehovah's witness [] Unable to walk/stand [] Unable to read [] Unable to drive [] Unable to eat/drink [] Unable to sleep [] Unable to be with family [] Patient intubated [] Other: Summary doesn't know about her health or what needs to done has negative feels or when she can go home Time spent with patient 10 mins
[2021-05-19] MEDS: pantoprazole DR 40 mg Tablet PO ×2 (10:34→17:32)
--- NOTE | 2021-05-19 11:00 | PM.PN ---
Subjective Subjective: Interval history: Patient reports she is doing okay. She did have a black and tarry bowel movement last night, and a small one this morning. She underwent EGD as well this morning demonstrating hiatal hernia and gastritis. Medications: Reviewed: Yes Vitals/I&O/Wt Last Vital Signs Temp 98.4 F 05/19/21 09:16 Pulse 86 05/19/21 09:16 Resp 18 05/19/21 09:16 BP 148/77 05/19/21 09:16 Pulse Ox 97 05/19/21 09:16 05/18/21 05/19/21 05/19/21 22:59 06:59 14:59 Intake Total 370 / 370 905 / 1275 150 / 150 Balance 370 / 370 905 / 1275 150 / 150 Weight last 48 hrs Weight 70.307 kg Physical Exam Narrative: EXAM NARRATIVE: General exam no distress Neck supple no lymphadenopathy or JVD Cardio regular rate and rhythm no murmurs Respiratory clear to auscultation bilaterally no wheezes GI soft nontender with positive bowel sounds no organomegaly Extremities no cyanosis, clubbing. 1+ edema in lower extremities Data : 05/19/21 04:57 05/19/21 04:57 A&P Assessment and plan (1) Melena: Patient reports black tarry stools consistent with upper GI bleeding She had some stools last night as well. She has history of bleeding from her hiatal hernia in the past, possible Cory's ulcers. No Cory's ulcers were seen on EGD today. No active bleeding. Gastritis was noted. Hiatal hernia visualized. Initiate diet Change Protonix to p.o. Monitor closely for any continued bleeding. Small bowel bleeding has not been excluded. If with initiation of diet, no further evidence of GI bleeding has occurred consider discharge home as early as tomorrow morning. Appreciate surgery consultation Status: Acute (2) Anemia: Transfusion 1 unit of packed red blood cells was performed 05/18 Unknown baseline hemoglobin but appears to have iron deficiency anemia. Status: Acute (3) GERD (gastroesophageal reflux disease): Protonix as above Status: Acute (4) Hypertension: Hold antihypertensives currently secondary to ongoing bleeding. Restart some of her medications at this point. Status: Acute Additional A&P Information Multiple other medical problems as outlined in the patient's past medical history. Full code SCDs for DVT prophylaxis, anticoagulation contraindicated secondary to GI bleeding. Attestations Medical Necessity Statement*: Needs continued hospitalization secondary to GI bleed with anemia requiring transfusion with concern of continued bleeding. Coding Level of Care Code Acute Residential Child Care Counselor for [facility] Fwd Diagnoses Melena K92.1 Anemia D64.9 GERD (gastroesophageal reflux disease) K21.9 Hypertension I10
--- NOTE | 2021-05-19 14:51 | ANE.PACU2 ---
Inpatient post-anesthesia follow up: Airway intact: Yes Vital signs: Temperature 98.6 F Pulse Rate [Monito r] 113 Pulse Rate 88 Respiratory Rate 16 Blood Pressure [Le ft Arm] 150/73 Blood Pressure 124/74 Pulse Oximetry 96 Oxygen Delivery Me thod Room Air Oxygen Flow Rate Fraction of Inspir ed Oxygen Hydration adequate: Yes Nausea and vomiting: No Pain level: 2 Mental status: Baseline
[2021-05-19] MEDS: acetaminophen 325 mg Tablet 650 MG PO (16:02)
[2021-05-19 16:16] LABS: Hematocrit 30.2 % (37.0-47.0); Hemoglobin 9.1 g/dL (11.5-15.3)
[2021-05-19] MEDS: topiramate 100 mg Tablet PO (17:32)
[2021-05-19] MEDS: duloxetine 60 mg Capsule PO (17:32)
[2021-05-20] VITALS: BP 118/69; PULSE 89; RESP 16; TEMP 36.7; O2SAT 91
[2021-05-20 04:00] VITALS: BP 120/71; PULSE 91; RESP 16; TEMP 36.7; O2SAT 93
[2021-05-20 05:23] LABS: Basophils # 0.1 10^3/uL (0.0-0.1); Eosinophils # 0.4 10^3/uL (0.0-0.8); Eosinophils % 6.7 %; Hematocrit 29.6 % (37.0-47.0); Hemoglobin 8.9 g/dL (11.5-15.3); Lymphocytes # 1.5 10^3/uL (0.8-4.8); Mean Corpuscular HGB Conc 30.1 g/dL (30.0-36.0); Mean Corpuscular Hemoglobin 26.6 pg (28.0-34.0); Mean Corpuscular Volume 88.4 fl (81-99); Monocytes # 0.6 10^3/uL (0.2-0.9); Monocytes % 9.9 %; Neutrophils # 3.63 10^3/uL (1.8-7.7); Neutrophils % 58.2 %; Nucleated Red Blood Cells % 0 %; Platelet Count 212 10^3/cmm (130-400); Red Blood Count 3.35 10^6/uL (4.1-5.3); Red Cell Distribution Width 16.4 % (12.1-15.1); White Blood Count 6.2 10^3/uL (4.0-10.0)
[2021-05-20] MEDS: topiramate 100 mg Tablet 50 MG PO (05:30)
[2021-05-20 05:45] LABS: Alanine Aminotransferase 10 U/L (0-33); Albumin Level 3.9 g/dL (3.5-5.2); Alkaline Phosphatase 66 IU/L (35-105); Anion Gap 14.2 (5-19); Aspartate Amino Transferase 17 U/L (0-32); Blood Urea Nitrogen 18 mg/dL (8-23); Calcium 8.9 mg/dL (8.5-10.5); Carbon Dioxide 24 mmol/L (22-29); Chloride 107 mmol/L (98-107); Globulin 3.1 g/dL (1.3-4.6); Glucose 111 mg/dL (65-115); Osmolality Calculated 295 mOsm/kg (285-295); Potassium 4.2 mmol/L (3.5-5.1); Sodium 141 mmol/L (136-145); Total Bilirubin 0.2 mg/dL (0.15-1.2)
[2021-05-20 07:41] VITALS: BP 110/75; PULSE 85; RESP 17; TEMP 36.7; O2SAT 97
[2021-05-20] MEDS: atorvastatin 40 mg Tablet 20 MG PO (07:48)
[2021-05-20] MEDS: pantoprazole DR 40 mg Tablet PO (07:48)
[2021-05-20] MEDS: duloxetine 60 mg Capsule PO (07:48)
--- NOTE | 2021-05-20 07:50 | P.DS_ITS ---
Discharge Providers Date of Admission: 05/18/21 11:25 Date of Discharge: May 20, 2021 Attending Provider at Admission: Michael Gay MD Attending Provider at Discharge: Michael Gay MD Primary Care Provider: CALVIN Jenkins Diagnoses at Discharge Discharge Diagnosis (1) Melena: Status: Acute (2) Anemia: Status: Acute (3) GERD (gastroesophageal reflux disease): Status: Acute (4) Hypertension: Status: Acute Reason for Visit Reason for Visit: GI BLEED Hospital Course Hospital Course Mrs. Caban presented to the hospital with history of black tarry stools. She had had a previous GI bleed 3 years ago secondary to hiatal hernia. and patient did not believe she was taking her Protonix lately. She had not been taking any anti-inflammatory. She was placed on Protonix IV, hydrated, and transfused 1 unit of packed red blood cells for hemoglobin of 6.9. An EGD was performed, which demonstrated a hiatal hernia, no active bleeding, and some mild gastritis. She would continue to be monitored the next day after feeding secondary to possibility of small bowel bleed. She had no other significant evidence of ongoing bleeding, and hemoglobin remained stable. Hemoglobin at discharge was 8.9. She was instructed to not take any anti-inflammatories, take her Protonix twice daily, follow-up with primary care provider next week with CBC. Physical Exam Narrative: EXAM NARRATIVE: General exam no apparent distress Neck is supple Cardiovascular regular rate and rhythm Lungs clear Abdomen is soft Extremities no cyanosis clubbing or edema Discharge Data Data Completed and Pending: Completed Studies During Hospitalization Category Date Time Status CT abdomen pelvis w con* [id number] Stat Cat Scan 05/18/21 08:25 Completed XR chest 1V becka ble [id number] Stat Exams 05/18/21 08:25 Completed Labs from last 24 hours 05/20/21 05/20/21 05/19/21 04:29 04:29 15:34 WBC 6.2 RBC 3.35 L Hgb 8.9 L 9.1 L Hct 29.6 L 30.2 L MCV 88.4 MCH 26.6 L MCHC 30.1 RDW 16.4 H Plt Count 212 MPV 9.0 Neut % (Auto) 58.2 Lymph % (Auto) 24.0 [place] % (Auto) 9.9 Eos % (Auto) 6.7 Baso % (Auto) 1.0 Neut # (Auto) 3.63 Lymph # (Auto) 1.5 [place] # (Auto) 0.6 Eos # (Auto) 0.4 Baso # (Auto) 0.1 Nucleated RBC % (a uto) 0 Nucleated RBCs # 0.0 Sodium 141 Potassium 4.2 Chloride 107 Carbon Dioxide 24 Anion Gap 14.2 BUN 18 Creatinine 0.7 GFR Calculation Not Reportable Glucose 111 Calculated Osmolal ity 295 Calcium 8.9 Total Bilirubin 0.2 AST 17 ALT 10 Alkaline Phosphata se 66 Total Protein 7.0 Albumin 3.9 Globulin 3.1 Vitals: Last Vital Signs Temp 98.0 F 05/20/21 07:41 Pulse 85 05/20/21 07:41 Resp 17 05/20/21 07:41 BP 110/75 05/20/21 07:41 Pulse Ox 97 05/20/21 07:41 Discharge Plan Discharge Patient Disposition: Home Condition: Stable Prescriptions: Continued alprazolam 0.5 mg tablet 0.5 mg PO TID PRN (Reason: Anxiety) RF: 0 amlodipine 5 mg tablet 5 mg PO DAILY RF: 0 aripiprazole 2 mg tablet 2 mg PO DAILY RF: 0 ascorbic acid (vitamin C) 500 mg capsule 500 mg PO DAILY RF: 0 dicyclomine 20 mg tablet 40 mg PO BID RF: 0 duloxetine 60 mg capsule,delayed release(DR/EC) 60 mg PO BID RF: 0 lisinopril 20 mg tablet 20 mg PO DAILY RF: 0 loratadine 10 mg capsule 10 mg PO DAILY PRN (Reason: Allergy Symptoms) RF: 0 mirtazapine 45 mg tablet 45 mg PO DAILY RF: 0 simvastatin 40 mg tablet 40 mg PO DAILY RF: 0 tizanidine 2 mg capsule 2 mg PO TID PRN (Reason: Muscle Spasm) RF: 0 topiramate 50 mg tablet See Rx Instructions .ROUTE .COMPLEX RF: 0 Probiotic 1 cap PO DAILY RF: 0 Calcium + D 600 mg(1,500mg) -200 unit Tablet 1 tab PO DAILY RF: 0 benzonatate 100 mg Capsule 100 mg PO TID PRN (Reason: Cough) RF: 0 hydrochlorothiazide 25 mg Tablet 12.5 - 25 mg PO DAILY RF: 0 albuterol sulfate [ProAir HFA] 90 mcg/actuation Hfa Aerosol Inhaler 2 puff INHALATION Q6H PRN (Reason: Shortness Of Breath) RF: 0 Flonase 50 mcg/actuation [place],Suspension 2 spray INTRANASAL DAILY PRN (Reason: Allergy Symptoms) RF: 0 trospium 20 mg Tablet 20 mg PO DAILY RF: 0 Neuriva Original 100-100 mg Capsule 1 cap PO DAILY RF: 0 vitamin E 1 cap PO DAILY RF: 0 pantoprazole 40 mg tablet,delayed release (DR/EC) 40 mg PO BID Qty: 60 RF: 0 Discharge Orders: Discharge Order (Routine); Ordered 05/20/21 Ordered By: Michael Gay Referrals: Poly Galaviz FNP [Primary Care Provider] - 4-7 days (CBC on follow-up) Discharge Diet: Cardiac Discharge Activity: Increase activity as tolerated Patient Instructions: GI Discharge Instructions, Opioid Safety Activity Restrictions/Additional Instructions: Avoid all anti-inflammatories Take your Protonix 40 mg twice daily CBC on follow-up with primary care provider next week Return for any bleeding Discharge Attestations Time Spent in Discharge Care*: greater than 30 min Quality Metrics Clinical Quality Measures During this hospital stay, did patient experience: None Coding Level of Care Code Acute [facility] note Diagnoses Melena K92.1 Anemia D64.9 GERD (gastroesophageal reflux disease) K21.9 Hypertension I10
[2021-05-20] MEDS: mirtazapine 30 mg Tablet 45 MG PO (07:56)
[2021-05-20] MEDS: ARIPiprazole 2 mg Tablet PO (07:57)
[2021-05-20] MEDS: amlodipine 5 mg Tablet PO (07:57)
[2021-05-20 10:42] VITALS: PULSE 96; RESP 18; O2SAT 94
[2021-05-20 11:24] VITALS: PULSE 96; RESP 18; TEMP 37; O2SAT 94
--- NOTE | 2021-05-23 11:42 | PC.SOCIAL ---
hospital follow up call made. spoke with pts , pt is doing well. aware of follow up appointment with pcp. no needs voiced.
== END 2021-05-20 11:25 | disposition home or self-care (01) ==
LOC: ER 11:17 → MEDSURG 05-19 06:00
PROVIDERS: Surgery; Admitting Provider Internal Medicine; Emergency Provider Family Medicine; PCP Registered Nurse; Visit Provider Internal Medicine
PROC: 0DJ08ZZ Inspection of Upper Intestinal Tract, Via Natural or Artificial Opening Endoscopic (ICD-10-PCS; CPT 43235; principal; 2021-05-19 08:00)
DX: K92.1 Melena (principal); D64.9 Anemia, unspecified; K21.9 Gastro-esophageal reflux disease without esophagitis; I10 Essential (primary) hypertension; Z87.19 Personal history of other diseases of the digestive system; K44.9 Diaphragmatic hernia without obstruction or gangrene; E78.5 Hyperlipidemia, unspecified; M19.90 Unspecified osteoarthritis, unspecified site
CPT/HCPCS: 36415; 36430; 43235; 71045; 74177; 80053; 81003; 82607; 82728; 82746; 83540; 83550; 83605; 83690; 83735; 85014; 85018; 85025; 85610; 85730; 86850; 86900; 86920; 93005; 96374; 99285; C9113; G0378; J2704; J7030; P9040; Q9967

== ENCOUNTER 2021-06-06 17:15 | Observation (INO) | payer MEDICARE, SELFPAY ==
[2021-06-06 17:27] VITALS: BP 90/50; PULSE 98; RESP 24; TEMP 36.7; O2SAT 96; BMI 29.2
[2021-06-06 18:55] VITALS: BP 126/54; PULSE 78; O2SAT 96
--- NOTE | 2021-06-06 18:59 | XRR_ITS ---
PROCEDURE INFORMATION: Exam: XR Chest Exam date and time: 06/06/2021 6:59 PM Age: 81 years old Clinical indication: Shortness of breath; Additional info: SOB TECHNIQUE: Imaging protocol: XR of the chest. Views: 2 views. Total images: 2 COMPARISON: CR XR chest 1V portable [id number] 05/18/2021 8:35 AM FINDINGS: Lungs: No visible active interstitial or alveolar airspace disease. Pleural spaces: Unremarkable. No pleural effusion. No pneumothorax. Heart/Mediastinum: Large hiatal hernia. Cardiac structures and configuration with cardiac size upper limits of normal. Arteriosclerosis. Bones/joints: Unremarkable for age. Other findings: Obesity. XR/XR chest 2V* [id number] IMPRESSION: Nonacute.
--- NOTE | 2021-06-06 19:01 | W.ED.GIBLEED ---
HPI - GI Bleed General: Chief complaint: GI Bleed Stated complaint: SOB/BLACK STOOL Time Seen by Provider: 06/06/21 17:59 History of Present Illness: HPI Narrative: 81-year-old female with history of recurrent GI bleeds due to a large hiatal hernia presents due to 3 days of tarry stools and shortness of breath. Denies any abdominal pain or chest pain. She is not on blood thinners. Recently was admitted to the hospital and discharged in mid May after requiring some transfusions. Hemoglobin upon admission was around 6 and hemoglobin on discharge was in the eights. She states that her shortness of breath feels the same as all previous times when she has had GI bleeds. Denies any history of PE or DVT. Review of Systems Narrative: - CONSTITUTIONAL: Denies weight loss, fever and chills. - HEENT: Denies changes in vision and hearing. - RESPIRATORY: As above - CV: Denies palpitations and CP. - GI: Denies abdominal pain, nausea, vomiting and diarrhea. Endorses GI bleed. - : Denies dysuria and urinary frequency. - MSK: Denies myalgia and joint pain. - SKIN: Denies rash and pruritus. - NEUROLOGICAL: Denies headache, weakness, numbness and syncope. - PSYCHIATRIC: Denies suicidal ideation [facility] ED PFSH: Medical History (Updated 05/21/21 @ 00:01 by ) Anxiety and depression Arthritis Chronic anemia Chronic fatigue XOCHITL (generalized anxiety disorder) GERD (gastroesophageal reflux disease) Hiatal hernia Hyperlipidemia Hypertension Insomnia Intractable migraine without aura Moderate episode of recurrent major depressive disorder Seasonal affective disorder Surgical History History of carpal tunnel release History of total knee arthroplasty History of total right knee replacement (TKR) 11/01/2017 Family History Other Psychiatric illness Social History Smoking and tobacco status: never smoked Second hand smoke exposure: Yes Alcohol intake: current Alcohol intake frequency: holidays/special occasions only Physical Exam Narrative: EXAM NARRATIVE: - GENERAL: Alert and oriented x 3. No acute distress. Well-nourished. - EYES: EOMI. Anicteric. - HENT: Atraumatic, no C-spine tenderness. Moist mucous membranes. No scleral icterus. No cervical lymphadenopathy. - LUNGS: Clear to auscultation bilaterally. No accessory muscle use. Equal lung sounds bilaterally. No respiratory distress. - CARDIOVASCULAR: Regular rate and rhythm. No murmur. No JVD. - ABDOMEN: Soft, non-tender and non-distended. Negative CVA tenderness bilaterally, no rebound or guarding, negative Taylor sign. No palpable masses. - EXTREMITIES: No edema. Non-tender. - SKIN: No rashes or lesions. Warm. - NEUROLOGIC: No meningismus or focal neurological deficits. CN II-XII grossly intact. - PSYCHIATRIC: Cooperative. Appropriate mood and affect. Course Vital Signs: Vital signs: Vital Signs Temperature 98.1 F 06/06/21 17:27 Pulse Rate 82 06/06/21 20:05 Respiratory Rate 16 06/06/21 19:11 Blood Pressure 135/68 06/06/21 20:05 Pulse Oximetry 96 06/06/21 20:05 MDM - GI Bleed MDM Narrative: Medical decision making narrative: 81-year-old female history of recurrent GI bleeds due to large hiatal hernia presents with shortness of breath and active melena. Hemoglobin upon last discharge in the middle of May was 8.9 dates 7.2. Otherwise she is hemodynamically stable afebrile nontoxic-appearing. Remainder of lab work is unremarkable. Started on Protonix. Do not believe transfusion is required at this time. Remainder of lab work and imaging reviewed. Discussed with hospitalist and they agreed patient would benefit from admission. Patient admitted in stable condition. Further evaluation management per hospitalist team. Lab Data: Labs: Lab Results 06/06/21 06/06/21 06/06/21 19:07 19:07 19:07 WBC 8.8 10^3/uL 10^3/ uL (4.0-10.0) RBC 2.78 10^6/uL L 10 ^6/uL (4.1-5.3) Hgb 7.2 g/dL L g/dL (11.5-15.3) Hct 24.5 % L % (37.0-47.0) MCV 88.1 fl fl (81-99) MCH 25.9 pg L pg (28.0-34.0) MCHC 29.4 g/dL L g/dL (30.0-36.0) RDW 17.1 % H % (12.1-15.1) Plt Count 329 10^3/cmm 10^3 /cmm (130-400) MPV 9.3 fL fL (7.4-10.4) Neut % (Auto) 51.4 % % Lymph % (Auto) 31.9 % % [place] % (Auto) 11.4 % % Eos % (Auto) 4.2 % % Baso % (Auto) 0.6 % % Neut # (Auto) 4.53 10^3/uL 10^3 /uL (1.8-7.7) Lymph # (Auto) 2.8 10^3/uL 10^3/ uL (0.8-4.8) [place] # (Auto) 1.0 10^3/uL H 10^ 3/uL (0.2-0.9) Eos # (Auto) 0.4 10^3/uL 10^3/ uL (0.0-0.8) Baso # (Auto) 0.1 10^3/uL 10^3/ uL (0.0-0.1) Nucleated RBC % (a uto) 0 % % Nucleated RBCs # 0.0 /100WBC /100W BC PT 12.90 SECONDS SEC ONDS (12.1-14.9) INR 0.95 (0.8-1.2) APTT 24.5 SECONDS SECO NDS (23.9-36.7) Sodium 140 mmol/L mmol/L (136-145) Potassium 4.8 mmol/L mmol/L (3.5-5.1) Chloride 106 mmol/L mmol/L (98-107) Carbon Dioxide 25 mmol/L mmol/L (22-29) Anion Gap 13.8 (5-19) BUN 23 mg/dL mg/dL (8-23) Creatinine 0.9 mg/dL mg/dL (0.5-0.9) GFR Calculation Not Reportable Glucose 105 mg/dL mg/dL (65-115) Calculated Osmolal ity 294 mOsm/kg mOsm/ kg (285-295) Calcium 9.2 mg/dL mg/dL (8.5-10.5) Total Bilirubin 0.2 mg/dL mg/dL (0.15-1.2) AST 13 U/L U/L (0-32) ALT 8 U/L U/L (0-33) Alkaline Phosphata se 55 IU/L IU/L (35-105) Troponin T Baselin e NT-Pro-B Natriuret Pep 193 pg/mL pg/mL (0-450) Total Protein 6.0 g/dL L g/dL (6.6-8.7) Albumin 3.7 g/dL g/dL (3.5-5.2) Globulin 2.3 g/dL g/dL (1.3-4.6) Lipase 50 U/L U/L (13-60) SARS-CoV-2 Ag (Rap id) 06/06/21 06/06/21 19:07 19:26 WBC RBC Hgb Hct MCV MCH MCHC RDW Plt Count MPV Neut % (Auto) Lymph % (Auto) [place] % (Auto) Eos % (Auto) Baso % (Auto) Neut # (Auto) Lymph # (Auto) [place] # (Auto) Eos # (Auto) Baso # (Auto) Nucleated RBC % (a uto) Nucleated RBCs # PT INR APTT Sodium Potassium Chloride Carbon Dioxide Anion Gap BUN Creatinine GFR Calculation Glucose Calculated Osmolal ity Calcium Total Bilirubin AST ALT Alkaline Phosphata se Troponin T Baselin e 18 ng/L H ng/L (0-10) NT-Pro-B Natriuret Pep Total Protein Albumin Globulin Lipase SARS-CoV-2 Ag (Rap id) Negative (Negative) EKG Data^: EKG 1: Other EKG comments: Sinus rhythm, rate of 79, anterior Q waves are present, likely representing remote ischemia with no sign of acute ischemia or other acute abnormality. Discharge Plan Discharge Prescriptions: No Action alprazolam 0.5 mg tablet 0.5 mg PO TID PRN (Reason: Anxiety) RF: 0 amlodipine 5 mg tablet 5 mg PO DAILY RF: 0 aripiprazole 2 mg tablet 2 mg PO DAILY RF: 0 ascorbic acid (vitamin C) 500 mg capsule 500 mg PO DAILY RF: 0 dicyclomine 20 mg tablet 40 mg PO BID RF: 0 duloxetine 60 mg capsule,delayed release(DR/EC) 60 mg PO BID RF: 0 lisinopril 20 mg tablet 20 mg PO DAILY RF: 0 loratadine 10 mg capsule 10 mg PO DAILY PRN (Reason: Allergy Symptoms) RF: 0 mirtazapine 45 mg tablet 45 mg PO DAILY RF: 0 simvastatin 40 mg tablet 40 mg PO DAILY RF: 0 tizanidine 2 mg capsule 2 mg PO TID PRN (Reason: Muscle Spasm) RF: 0 topiramate 50 mg tablet See Rx Instructions .ROUTE .COMPLEX RF: 0 Probiotic 1 cap PO DAILY RF: 0 calcium carbonate-vitamin D3 600 mg(1,500mg) -200 unit Tablet 1 tab PO DAILY RF: 0 benzonatate 100 mg Capsule 100 mg PO TID PRN (Reason: Cough) RF: 0 hydrochlorothiazide 25 mg Tablet 12.5 - 25 mg PO DAILY RF: 0 albuterol sulfate [ProAir HFA] 90 mcg/actuation Hfa Aerosol Inhaler 2 puff INHALATION Q6H PRN (Reason: Shortness Of Breath) RF: 0 fluticasone propionate 50 mcg/actuation [place],Suspension 2 spray INTRANASAL DAILY PRN (Reason: Allergy Symptoms) RF: 0 trospium 20 mg Tablet 20 mg PO DAILY RF: 0 Neuriva Original 100-100 mg Capsule 1 cap PO DAILY RF: 0 vitamin E 1 cap PO DAILY RF: 0 pantoprazole 40 mg tablet,delayed release (DR/EC) 40 mg PO BID Qty: 60 RF: 0 Coding Level of Care Code ED Physical Director for Nic Flores
[2021-06-06 19:11] VITALS: BP 103/55; PULSE 79; RESP 16; O2SAT 95
[2021-06-06 19:18] LABS: Basophils # 0.1 10^3/uL (0.0-0.1); Basophils % 0.6 %; Eosinophils # 0.4 10^3/uL (0.0-0.8); Eosinophils % 4.2 %; Hematocrit 24.5 % (37.0-47.0); Hemoglobin 7.2 g/dL (11.5-15.3); Lymphocytes # 2.8 10^3/uL (0.8-4.8); Lymphocytes % 31.9 %; Mean Corpuscular HGB Conc 29.4 g/dL (30.0-36.0); Mean Corpuscular Hemoglobin 25.9 pg (28.0-34.0); Mean Corpuscular Volume 88.1 fl (81-99); Mean Platelet Volume 9.3 fL (7.4-10.4); Monocytes % 11.4 %; Neutrophils # 4.53 10^3/uL (1.8-7.7); Neutrophils % 51.4 %; Nucleated Red Blood Cells % 0 %; Platelet Count 329 10^3/cmm (130-400); Red Blood Count 2.78 10^6/uL (4.1-5.3); Red Cell Distribution Width 17.1 % (12.1-15.1); White Blood Count 8.8 10^3/uL (4.0-10.0)
[2021-06-06 19:31] LABS: INR 0.95 (0.8-1.2)
[2021-06-06 19:32] LABS: Partial Thromboplastin Time 24.5 SECONDS (23.9-36.7)
[2021-06-06 19:37] LABS: Troponin(5th) Baseline 18 ng/L (0-10)
[2021-06-06 19:52] LABS: Alanine Aminotransferase 8 U/L (0-33); Albumin Level 3.7 g/dL (3.5-5.2); Alkaline Phosphatase 55 IU/L (35-105); Anion Gap 13.8 (5-19); Aspartate Amino Transferase 13 U/L (0-32); Blood Urea Nitrogen 23 mg/dL (8-23); Calcium 9.2 mg/dL (8.5-10.5); Carbon Dioxide 25 mmol/L (22-29); Chloride 106 mmol/L (98-107); Globulin 2.3 g/dL (1.3-4.6); Glucose 105 mg/dL (65-115); Lipase 50 U/L (13-60); NT Pro B Type Natriuretic Pept 193 pg/mL (0-450); Osmolality Calculated 294 mOsm/kg (285-295); Potassium 4.8 mmol/L (3.5-5.1); Sodium 140 mmol/L (136-145); Total Bilirubin 0.2 mg/dL (0.15-1.2)
[2021-06-06] MEDS: pantoprazole 40 mg SDV IVP (19:54)
[2021-06-06] MEDS: sodium chloride 0.9% 500 ML 999 ML IV (19:54)
[2021-06-06 20:00] LABS: SARS Covid-2 Antigen Negative (Negative)
[2021-06-06 20:05] VITALS: BP 135/68; PULSE 82; O2SAT 96
--- NOTE | 2021-06-06 20:07 | PC.NURSE ---
PATIENT PLACED ON GROUND MIXER.
--- NOTE | 2021-06-06 21:00 | ECG_ITS ---
[facility] Test Date: 2021-06-07 Pat Name: Niels Caban Department: Room: 279 Gender: Female Professor Of Literature: : 1940 Requested By: Grayson Daniels Order Number: [id number] Sole MD: GRISELDA DUFF Measurements Intervals [place] Rate: 90 P: 49 NC: 203 QRS: 23 QRSD: 77 T: 53 QT: 353 QTc: 433 Interpretive Statements SINUS RHYTHM LOW QRS VOLTAGE IN PRECORDIAL LEADS [QRS DEFLECTION < 1.0 mV IN CHEST LEADS] SEPTAL MYOCARDIAL INFARCTION , OF INDETERMINATE AGE [40+ ms Q WAVE IN V1/V2] Compared to ECG 05/18/2021 09:48:35 Low QRS voltage now present Myocardial infarct finding still present Electronically Signed On 06-07-2021 20:04:00 CDT by GRISELDA DUFF [id number]
--- NOTE | 2021-06-06 21:05 | PM.HP ---
Providers/Chief Complaint Admitting Physician: Socorro Worthy MD Primary Care Provider: CALVIN Jenkins Chief Complaint: SOB/BLACK STOOL History of Present Illness Niels Caban is a 81 year old female who presented to the emergency room with chief complaint of shortness of breath and black stools. She has a history of GI bleed related to hiatal hernia induced gastritis. She was hospitalized earlier this month with similar symptoms and was found to have a hemoglobin of 6.9. She received transfusion of 1 unit of packed red blood cells according to discharge summary however I do not see a log in the blood bank records from that hospital stay. Hemoglobin at the time of discharge was 8.9. She was doing okay initially but about 3 days ago started having black tarry stools again. 2 days ago she started feeling short of breath. She says when she gets short of breath it usually an indication that her hiatal hernia, which is longstanding, has migrated up into her chest again. She says it feels like it is pushing on her lungs. She denies abdominal pain, pain with swallowing, nausea or vomiting. She has chronic irritable bowels and denies significant change in bowels beyond the melena. Denies any bright red blood. She has been taking her Protonix twice a day as prescribed. She underwent EGD on May 19 that demonstrated a hiatal hernia and mild gastritis along the border of the hiatal hernia in the gastric body. There was no active bleeding or other abnormalities identified. She had similar episode several years ago and was evaluated both at [facility] as well as at [place]. She has had capsule endoscopy, EGD and colonoscopy in 2016 were all unremarkable at [facility]. The hiatal hernia was identified in [place] a few years ago. Prior to the last episode she was not sure if she has been taking her Protonix. She does not take NSAIDs. She does take vitamin C. Vital signs were stable. Hemoglobin was 7.2. Request was made for admission due to drop in hemoglobin with recurrent melena under the circumstances. Only other complaints are back pain which is chronic in nature very more prominent presently. Review of Systems Const: Denies: fever(s) or change in appetite ENMT: Reports: other (Chronic hearing loss); Denies: throat pain or nasal congestion Card: Denies: chest pain or palpitations Resp: Denies: dyspnea, productive cough or non-productive cough GI: Reports: early satiety, bloating and melena; Denies: abdominal pain, nausea, vomiting, dysphagia, heartburn, diarrhea, constipation or hematochezia : Denies: difficulty voiding Musc: Reports: back pain (Chronic but more prominent last few days) Skin/Breast: Denies: rash, pruritus or sores Neuro: Reports: headache(s) (Chronic migraines) and difficulty walking (Secondary to pain in her back) Psych: Reports: anxiety (Chronic), depression (Chronic) and other (Insomnia) Tre/Lymph: Denies: easy bruising or easy bleeding Medications/Allergies Home Medications Medication Instructions Recorded Confirmed Last Taken Type alprazolam 0.5 mg tablet 0.5 mg PO TID PRN tab 12/20/20 06/06/21 Unknown History amlodipine 5 mg tablet 5 mg PO DAILY 12/20/20 06/06/21 06/06/21 History aripiprazole 2 mg tablet 2 mg PO DAILY 12/20/20 06/06/21 06/06/21 History ascorbic acid (vitamin C) 500 mg 500 mg PO DAILY cap 12/20/20 06/06/21 06/04/21 History capsule dicyclomine 20 mg tablet 40 mg PO BID 12/20/20 06/06/21 06/06/21 History duloxetine 60 mg capsule,delayed 60 mg PO BID 12/20/20 06/06/21 06/06/21 History release lisinopril 20 mg tablet 20 mg PO DAILY 12/20/20 06/06/21 06/06/21 History loratadine 10 mg capsule 10 mg PO DAILY PRN 12/20/20 06/06/21 Unknown History mirtazapine 45 mg tablet 45 mg PO BEDTIME 12/20/20 06/06/21 06/05/21 History simvastatin 40 mg tablet 40 mg PO DAILY 12/20/20 06/06/21 06/06/21 History tizanidine 2 mg capsule 2 mg PO TID PRN 12/20/20 06/06/21 Unknown History topiramate 50 mg tablet See Rx Instructions .ROUTE .COMPLEX 12/20/20 06/06/21 06/06/21 History Neuriva Original 1 cap PO DAILY 05/18/21 06/06/21 06/06/21 History Probiotic 1 cap PO DAILY 0906/06/21 06/06/21 History albuterol sulfate [ProAir HFA] 2 puff INHALATION Q6H PRN 05/18/21 06/06/21 Unknown History benzonatate 100 mg PO TID PRN 05/18/21 06/06/21 Unknown History calcium carbonate-vitamin D3 1 tab PO DAILY 05/18/21 06/06/21 06/06/21 History fluticasone propionate 2 spray INTRANASAL DAILY PRN 05/18/21 06/06/21 Unknown History hydrochlorothiazide 12.5 - 25 mg PO DAILY 05/18/21 06/06/21 06/06/21 History trospium 20 mg PO DAILY 05/18/21 06/06/21 06/06/21 History vitamin E 1 cap PO DAILY 05/18/21 06/06/21 06/06/21 History pantoprazole 40 mg PO BID #60 tab 05/20/21 06/06/21 06/06/21 Rx Allergies Allergy/AdvReac Type Severity Reaction Status Date / Time aspirin [From Radha Aspirin] Allergy bleeding Verified 05/18/21 11:41 PFSH Acute PFSH: Medical History (Updated 06/06/21 @ 22:38 by Socorro Worthy MD) Anxiety and depression Arthritis Chronic anemia Chronic fatigue Cochlear implant in place XOCHITL (generalized anxiety disorder) GERD (gastroesophageal reflux disease) Hiatal hernia History of GI bleed Hyperlipidemia Hypertension Insomnia Intractable migraine without aura Irritable bowel syndrome Moderate episode of recurrent major depressive disorder Osteoporosis Seasonal affective disorder Surgical History (Updated 06/06/21 @ 21:46 by Socorro Worthy MD) History of back surgery 4 screws and cage lower thoracic/upper lumbar History of carpal tunnel release History of colonoscopy (~2015) no abnormalities History of endoscopy (~2015) capsule endoscopy at [facility], no source of bleeding History of esophagogastroduodenoscopy (EGD) (05/19/21) 05/2021: Dr Hernandez, no active bleeding, mild diffuse gastritis at edge of hiatal hernia in gastric body History of hip replacement left History of thoracotomy age 5, to drain fluid from pneumonia History of total right knee replacement (TKR) 11/01/2017 History of tubal ligation for tubal Family History (Updated 06/06/21 @ 21:27 by Socorro Worthy MD) Father Alcohol abuse Other Psychiatric illness Denies family history of GI bleed Cancer Social History (Updated 06/06/21 @ 21:47 by Socorro Worthy MD) Smoking and tobacco status: never smoked Second hand smoke exposure: Yes Alcohol intake: current Alcohol intake frequency: holidays/special occasions only Alcohol type: wine Substance/Drug Use: never Household members: spouse Marital status: Additional social history: oldest of 20 siblings, age range 44-81 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 Vitals/I&O/Wt Last Vital Signs Temp 98.1 F 06/06/21 17:27 Pulse 82 06/06/21 20:05 Resp 16 06/06/21 19:11 BP 135/68 06/06/21 20:05 Pulse Ox 96 06/06/21 20:05 Weight last 48 hrs Weight 70.307 kg Physical Exam Narrative: EXAM NARRATIVE: Constitutional: Awake and alert, hard of hearing but able to answer questions if you talk loud enough, cooperative HEENT: Normocephalic, atraumatic, cochlear implant palpable in the left posterior auricular area, pupils are reactive, mucous membranes are slightly pale but moist Respiratory: Clear to auscultation bilaterally Cardiovascular: Regular rate and rhythm, no murmurs Abdomen: Soft, mild epigastric and right upper quadrant tenderness without rebound or guarding, positive bowel sounds Extremities: Trace edema Skin: Chronic skin changes noted, pale, brisk capillary refill Neuro: Speech clear, moves all extremities Psych: Normal affect Data : 06/06/21 19:07 06/06/21 19:07 Other data: Laboratory Results WBC 8.8 10^3/uL (4.0-10.0) 06/06/21 19:07 RBC 2.78 10^6/uL (4.1-5.3) L 06/06/21 19:07 Hgb 7.2 g/dL (11.5-15.3) L 06/06/21 19:07 Hct 24.5 % (37.0-47.0) L 06/06/21 19:07 MCV 88.1 fl (81-99) 06/06/21 19:07 MCH 25.9 pg (28.0-34.0) L 06/06/21 19:07 MCHC 29.4 g/dL (30.0-36.0) L 06/06/21 19:07 RDW 17.1 % (12.1-15.1) H 06/06/21 19:07 Plt Count 329 10^3/cmm (130-400) 06/06/21 19:07 MPV 9.3 fL (7.4-10.4) 06/06/21 19:07 Neut % (Auto) 51.4 % 06/06/21 19:07 Lymph % (Auto) 31.9 % 06/06/21 19:07 [place] % (Auto) 11.4 % 06/06/21 19:07 Eos % (Auto) 4.2 % 06/06/21 19:07 Baso % (Auto) 0.6 % 06/06/21 19:07 Neut # (Auto) 4.53 10^3/uL (1.8-7.7) 06/06/21 19:07 Lymph # (Auto) 2.8 10^3/uL (0.8-4.8) 06/06/21 19:07 [place] # (Auto) 1.0 10^3/uL (0.2-0.9) H 06/06/21 19:07 Eos # (Auto) 0.4 10^3/uL (0.0-0.8) 06/06/21 19:07 Baso # (Auto) 0.1 10^3/uL (0.0-0.1) 06/06/21 19:07 Nucleated RBC % (auto) 0 % 06/06/21 19:07 Nucleated RBCs # 0.0 /100WBC 06/06/21 19:07 PT 12.90 SECONDS (12.1-14.9) 06/06/21 19:07 INR 0.95 (0.8-1.2) 06/06/21 19:07 APTT 24.5 SECONDS (23.9-36.7) 06/06/21 19:07 Sodium 140 mmol/L (136-145) 06/06/21 19:07 Potassium 4.8 mmol/L (3.5-5.1) 06/06/21 19:07 Chloride 106 mmol/L (98-107) 06/06/21 19:07 Carbon Dioxide 25 mmol/L (22-29) 06/06/21 19:07 Anion Gap 13.8 (5-19) 06/06/21 19:07 BUN 23 mg/dL (8-23) 06/06/21 19:07 Creatinine 0.9 mg/dL (0.5-0.9) 06/06/21 19:07 GFR Calculation Not Reportable 06/06/21 19:07 Glucose 105 mg/dL (65-115) 06/06/21 19:07 Calculated Osmolality 294 mOsm/kg (285-295) 06/06/21 19:07 Calcium 9.2 mg/dL (8.5-10.5) 06/06/21 19:07 Total Bilirubin 0.2 mg/dL (0.15-1.2) 06/06/21 19:07 AST 13 U/L (0-32) 06/06/21 19:07 ALT 8 U/L (0-33) 06/06/21 19:07 Alkaline Phosphatase 55 IU/L (35-105) 06/06/21 19:07 Troponin T Baseline 18 ng/L (0-10) H 06/06/21 19:07 Troponin T 120 Minute 15.25 ng/L (0-10) H 06/06/21 20:53 Delta Troponin T -2.75 ABS# (0-10) L 06/06/21 20:53 NT-Pro-B Natriuret Pep 193 pg/mL (0-450) 06/06/21 19:07 Total Protein 6.0 g/dL (6.6-8.7) L 06/06/21 19:07 Albumin 3.7 g/dL (3.5-5.2) 06/06/21 19:07 Globulin 2.3 g/dL (1.3-4.6) 06/06/21 19:07 Lipase 50 U/L (13-60) 06/06/21 19:07 SARS-CoV-2 Ag (Rapid) Negative (Negative) 06/06/21 19:26 Blood Type A Positive 06/06/21 19:50 Rho(D) Type Positive 06/06/21 19:50 Antibody Screen Negative 06/06/21 19:50 Crossmatch See Detail 06/06/21 19:50 Impressions Chest X-Ray 06/06/21 18:59 IMPRESSION: Nonacute. A&P Assessment and plan (1) Melena: Recurrent, recent EGD demonstrated gastric body gastritis near the edge of hiatal hernia although at the time no active bleeding Status: Acute (2) Anemia: With recent acute loss as evidenced by melena and drop in hemoglobin Status: Acute Qualifiers: Anemia type: iron deficiency Iron deficiency anemia type: chronic blood loss Qualified Code(s): D50.0 - Iron deficiency anemia secondary to blood loss (chronic) (3) Shortness of breath: Patient attributes to sensation of fullness and pressure on her lungs from her hiatal hernia but may also be secondary to recurrent drop in hemoglobin/anemia Status: Acute (4) Hiatal hernia: Status: Chronic (5) GERD (gastroesophageal reflux disease): Status: Chronic Qualifiers: Esophagitis presence: esophagitis presence not specified Qualified Code(s): K21.9 - Gastro-esophageal reflux disease without esophagitis Additional A&P Information Observation admission Serial H&H Transfuse if further drop in hemoglobin Continue PPI Clear liquid diet currently May consider addition of Carafate pending clinical course Have recommended that patient hold vitamin C for 2 to 4 weeks, as well as other acidic vitamins or foods as much as possible Currently do not anticipate need for repeat endoscopy unless has gross bright red bleeding. Presentation is very similar this time to what she had in the past when no other source of GI bleeding was identified. She had unremarkable capsule endoscopy as well as colonoscopy in 2016. If has recurrent episodes of bleeding, repeat evaluation could be considered. Last available comparative hemoglobin prior to this month was from 2019 when hemoglobin was 12.6. I suspect that she has had a slow intermittent blood loss contributing to likely chronic iron deficiency anemia, with a few episodes of exacerbation with sofi melena identified. Iron last hospital stay was 17; would benefit from iron sulfate although it may make it more challenging to evaluate for future melena Other home medications have been reviewed and ordered Currently low risk for VTE Supportive care otherwise Plans were discussed with patient as well as her and both were given an opportunity to ask questions Anticipate disposition home with outpatient follow-up to include a repeat hemoglobin within a couple weeks Full code Attestations Medical Necessity Statement*: Currently anticipate a stay less than two midnights in lady with known hiatal hernia with some mild gastritis identified earlier this month with recurrent melena and drop in hemoglobin. She has some shortness of breath which may be indicative of symptomatic anemia. Plan is to monitor hemoglobin for further drop, transfuse as indicated. Other plans as indicated. Coding Level of Care Code Acute Construction Site Crossing Guard for Chg Fwd Diagnoses Melena K92.1 Anemia D50.0 Anemia type: iron deficiency Iron deficiency anemia type: chronic blood loss Shortness of breath R06.02 Hiatal hernia K44.9 GERD (gastroesophageal reflux disease) K21.9 Esophagitis presence: esophagitis presence not specified
[2021-06-06 21:26] LABS: Troponin 5 2HR 15.25 ng/L (0-10); Troponin 5 2HR Delta -2.75 ABS# (0-10)
[2021-06-06 21:36] VITALS: PULSE 84; RESP 21; O2SAT 98
[2021-06-06 22:01] VITALS: BP 99/54; PULSE 83; RESP 17; TEMP 36.8; O2SAT 93
[2021-06-06] MEDS: topiramate 100 mg Tablet 50 MG PO (23:07)
[2021-06-06] MEDS: mirtazapine 15 mg Tablet 45 MG PO (23:08)
[2021-06-06] MEDS: duloxetine 60 mg Capsule PO (23:09)
[2021-06-06] MEDS: sodium chloride 0.9% 1,000 ML 75 ML IV (23:09)
[2021-06-07] VITALS (16 sets, daily range): BP systolic 93–142; BP diastolic 48–83; PULSE 81–101; RESP 16–18; TEMP 36.7–37.3; O2SAT 90–96
[2021-06-07 00:49] LABS: Glucose Point of Care 92 mg/dL (70-110)
[2021-06-07 00:53] LABS: Hematocrit 23.4 % (37.0-47.0); Hemoglobin 6.8 g/dL (11.5-15.3)
[2021-06-07] MEDS: dicyclomine 20 mg Tablet 40 MG PO ×2 (01:30→08:18)
[2021-06-07] MEDS: acetaminophen 325 mg Tablet 650 MG PO (06:10)
[2021-06-07] MEDS: sodium chloride 0.9% 100 mL Bag 50 ML IV (06:11)
[2021-06-07] MEDS: atorvastatin 40 mg Tablet 20 MG PO (08:14)
[2021-06-07] MEDS: pantoprazole 40 mg SDV IVP (08:15)
[2021-06-07] MEDS: lisinopril 20 mg Tablet PO (08:15)
[2021-06-07] MEDS: topiramate 100 mg Tablet 50 MG PO (08:15)
[2021-06-07] MEDS: amlodipine 5 mg Tablet PO (08:15)
[2021-06-07] MEDS: duloxetine 60 mg Capsule PO (08:15)
[2021-06-07] MEDS: ARIPiprazole 2 mg Tablet PO (08:18)
[2021-06-07] MEDS: ferrous sulfate EC 325 mg Tablet PO (08:18)
--- NOTE | 2021-06-07 10:23 | PC.CHAP ---
Pastoral Care Encounter/Spiritual Assessment Type of Contact [] Declined air traffic control supervisor visit [] Patient/Family/Request visit [] Outpatient visit [] Follow-up visit [] Physician referral [] Code/Alert [x] Routine visit [] Staff referral [] Actively dying [] Patient sleeping [] Family support [] [] Out of room [] Palliative care [] [] Receiving care in room [] Pre-surgical visit [] Trauma [] Long length of stay [] ICU visit [] Other: Relational/Emotional Strength [] Patient feels connected with others/family/visitors/staff [] Distress [] Loneliness/isolation [] Abandonment Spirituality of Patient [x] Person of [place] [] Attends Mormonism of their [place] [x] Believes in Prayer [] Reads Bible or Judaism materials [] There are Spiritual issues to be addressed Hat Block Bench Hand Interventions [x] Prayer [x] Active listening [x] Non-anxious presence [x] Spiritual/emotional support [] Crisis/trauma care [] Spiritual counseling [] Bereavement support [] Provided bereavement packet [] Provided Bible/devotional materials [] Provided toy/stuffed animal, coloring book to patient or family member [] Provided Communion [] Anointing/[place] [] Salvation [x] Completed spiritual assessment [] Other: Impact on Illness or Injury [] Angry [] Fearful [] Anxious [] Often cries [] Exhaustion [] Unable to work [] Unable to attend moravian [] Unable to walk/stand [] Unable to read [] Unable to drive [] Unable to eat/drink [] Unable to sleep [] Unable to be with family [] Patient intubated [] Other: Summary Pt very hard of hearing so visit was difficult. Did indicate she is a person of marichuy and requested prayer. Did have cell phone available for outside contact with family. Time spent with patient 5m
[2021-06-07 10:46] LABS: Hematocrit 34.3 % (37.0-47.0)
[2021-06-07 10:49] LABS: Hemoglobin 10.5 g/dL (11.5-15.3)
--- NOTE | 2021-06-07 12:31 | PM.DCS ---
Discharge Providers Date of Admission: 06/06/21 20:39 Date of Discharge: June 07, 2021 Attending Provider at Admission: Socorro Worthy MD Attending Provider at Discharge: Michael Gay MD Primary Care Provider: CALVIN Jenkins Diagnoses at Discharge Discharge Diagnosis (1) Melena: Status: Acute (2) Anemia: Status: Acute Qualifiers: Anemia type: iron deficiency Iron deficiency anemia type: chronic blood loss Qualified Code(s): D50.0 - Iron deficiency anemia secondary to blood loss (chronic) (3) Shortness of breath: Status: Acute (4) Hiatal hernia: Status: Chronic (5) GERD (gastroesophageal reflux disease): Status: Chronic Qualifiers: Esophagitis presence: esophagitis presence not specified Qualified Code(s): K21.9 - Gastro-esophageal reflux disease without esophagitis Reason for Visit Reason for Visit: SOB/BLACK STOOL Hospital Course Hospital Course Mrs. Caban presented to the hospital with history of dark tarry stools 3 to 4 days, then resolution day prior to admission. Day of admission she was still short of breath and feeling weak, discussed with her and came to the emergency department. She was found to have a low hemoglobin. She was transfused 2 units of packed red blood cells for hemoglobin of 6.8. While in the hospital there was no evidence of active bleeding. She had recently had an endoscopy demonstrating gastritis, and hiatal hernia. She had previously had an extensive evaluation in years past as documented in her history and physical. After 2 units of blood she felt back to normal, without significant shortness of breath. Hemoglobin following transfusion was 10.5. Carafate was added to her Protonix she takes at home. She is not taking any anti-inflammatories. I discussed treatment with iron orally as well to bring her blood count up further. Patient requested discharge home on June 07 as she felt good, and and had no active bleeding. I discussed with her possible further evaluation by GI as an outpatient which I encouraged greatly. Patient reports she will think about this, but at this point wants to go home and be in her own house. She reports she would not want any surgical procedure no matter what. I encouraged her to follow-up with her primary care provider in 3 to 5 days with a CBC, and likely get intermittent CBCs after this to monitor for bleeding. I encouraged her to get evaluated expeditiously should bleeding recur. Physical Exam Narrative: EXAM NARRATIVE: General exam no distress Neck is supple Cardiovascular regular rate and rhythm Lungs clear Abdomen is soft positive bowel sounds Extremities no cyanosis clubbing or edema Discharge Data Data Completed and Pending: Completed Studies During Hospitalization Category Date Time Status XR chest 2V* [id number] Stat Exams 06/06/21 18:59 Completed Labs from last 24 hours 06/07/21 06/07/21 06/06/21 10:38 00:50 20:53 WBC RBC Hgb 10.5 L D 6.8 L Hct 34.3 L D 23.4 L MCV MCH MCHC RDW Plt Count MPV Neut % (Auto) Lymph % (Auto) [place] % (Auto) Eos % (Auto) Baso % (Auto) Neut # (Auto) Lymph # (Auto) [place] # (Auto) Eos # (Auto) Baso # (Auto) Nucleated RBC % (a uto) Nucleated RBCs # PT INR APTT Sodium Potassium Chloride Carbon Dioxide Anion Gap BUN Creatinine GFR Calculation Glucose POC Glucose Calculated Osmolal ity Calcium Total Bilirubin AST ALT Alkaline Phosphata se Troponin T Baselin e Troponin T 120 Min [place] 15.25 H Delta Troponin T -2.75 L NT-Pro-B Natriuret Pep Total Protein Albumin Globulin Lipase SARS-CoV-2 Ag (Rap id) Blood Type Rho(D) Type Antibody Screen Crossmatch 06/06/21 06/06/21 06/06/21 19:50 19:26 19:07 WBC RBC Hgb Hct MCV MCH MCHC RDW Plt Count MPV Neut % (Auto) Lymph % (Auto) [place] % (Auto) Eos % (Auto) Baso % (Auto) Neut # (Auto) Lymph # (Auto) [place] # (Auto) Eos # (Auto) Baso # (Auto) Nucleated RBC % (a uto) Nucleated RBCs # PT INR APTT Sodium Potassium Chloride Carbon Dioxide Anion Gap BUN Creatinine GFR Calculation Glucose POC Glucose Calculated Osmolal ity Calcium Total Bilirubin AST ALT Alkaline Phosphata se Troponin T Baselin e 18 H Troponin T 120 Min [place] Delta Troponin T NT-Pro-B Natriuret Pep Total Protein Albumin Globulin Lipase SARS-CoV-2 Ag (Rap id) Negative Blood Type A Positive Rho(D) Type Positive Antibody Screen Negative Crossmatch See Detail 06/06/21 06/06/21 06/06/21 19:07 19:07 19:07 WBC 8.8 RBC 2.78 L Hgb 7.2 L Hct 24.5 L MCV 88.1 MCH 25.9 L MCHC 29.4 L RDW 17.1 H Plt Count 329 MPV 9.3 Neut % (Auto) 51.4 Lymph % (Auto) 31.9 [place] % (Auto) 11.4 Eos % (Auto) 4.2 Baso % (Auto) 0.6 Neut # (Auto) 4.53 Lymph # (Auto) 2.8 [place] # (Auto) 1.0 H Eos # (Auto) 0.4 Baso # (Auto) 0.1 Nucleated RBC % (a uto) 0 Nucleated RBCs # 0.0 PT 12.90 INR 0.95 APTT 24.5 Sodium 140 Potassium 4.8 Chloride 106 Carbon Dioxide 25 Anion Gap 13.8 BUN 23 Creatinine 0.9 GFR Calculation Not Reportable Glucose 105 POC Glucose Calculated Osmolal ity 294 Calcium 9.2 Total Bilirubin 0.2 AST 13 ALT 8 Alkaline Phosphata se 55 Troponin T Baselin e Troponin T 120 Min [place] Delta Troponin T NT-Pro-B Natriuret Pep 193 Total Protein 6.0 L Albumin 3.7 Globulin 2.3 Lipase 50 SARS-CoV-2 Ag (Rap id) Blood Type Rho(D) Type Antibody Screen Crossmatch 06/06/21 18:11 WBC RBC Hgb Hct MCV MCH MCHC RDW Plt Count MPV Neut % (Auto) Lymph % (Auto) [place] % (Auto) Eos % (Auto) Baso % (Auto) Neut # (Auto) Lymph # (Auto) [place] # (Auto) Eos # (Auto) Baso # (Auto) Nucleated RBC % (a uto) Nucleated RBCs # PT INR APTT Sodium Potassium Chloride Carbon Dioxide Anion Gap BUN Creatinine GFR Calculation Glucose POC Glucose 92 Calculated Osmolal ity Calcium Total Bilirubin AST ALT Alkaline Phosphata se Troponin T Baselin e Troponin T 120 Min [place] Delta Troponin T NT-Pro-B Natriuret Pep Total Protein Albumin Globulin Lipase SARS-CoV-2 Ag (Rap id) Blood Type Rho(D) Type Antibody Screen Crossmatch Vitals: Last Vital Signs Temp 99.2 F 06/07/21 11:24 Pulse 101 H 06/07/21 11:24 Resp 17 06/07/21 11:24 BP 138/73 06/07/21 11:24 Pulse Ox 93 06/07/21 11:24 Discharge Plan Discharge Patient Disposition: Home Condition: Stable Prescriptions: New ferrous sulfate 325 mg (65 mg iron) tablet 325 mg PO BID Qty: 60 RF: 0 sucralfate 1 gram Tablet 1 g PO AC&BEDTIME Qty: 120 RF: 0 Continued alprazolam 0.5 mg tablet 0.5 mg PO TID PRN (Reason: Anxiety) RF: 0 amlodipine 5 mg tablet 5 mg PO DAILY RF: 0 aripiprazole 2 mg tablet 2 mg PO DAILY RF: 0 dicyclomine 20 mg tablet 40 mg PO BID RF: 0 duloxetine 60 mg capsule,delayed release(DR/EC) 60 mg PO BID RF: 0 lisinopril 20 mg tablet 20 mg PO DAILY RF: 0 loratadine 10 mg capsule 10 mg PO DAILY PRN (Reason: Allergy Symptoms) RF: 0 mirtazapine 45 mg tablet 45 mg PO BEDTIME RF: 0 simvastatin 40 mg tablet 40 mg PO DAILY RF: 0 tizanidine 2 mg capsule 2 mg PO TID PRN (Reason: Muscle Spasm) RF: 0 topiramate 50 mg tablet See Rx Instructions .ROUTE .COMPLEX RF: 0 Probiotic 1 cap PO DAILY RF: 0 calcium carbonate-vitamin D3 600 mg(1,500mg) -200 unit Tablet 1 tab PO DAILY RF: 0 benzonatate 100 mg Capsule 100 mg PO TID PRN (Reason: Cough) RF: 0 hydrochlorothiazide 25 mg Tablet 12.5 - 25 mg PO DAILY RF: 0 albuterol sulfate [ProAir HFA] 90 mcg/actuation Hfa Aerosol Inhaler 2 puff INHALATION Q6H PRN (Reason: Shortness Of Breath) RF: 0 fluticasone propionate 50 mcg/actuation [place],Suspension 2 spray INTRANASAL DAILY PRN (Reason: Allergy Symptoms) RF: 0 trospium 20 mg Tablet 20 mg PO DAILY RF: 0 Neuriva Original 100-100 mg Capsule 1 cap PO DAILY RF: 0 vitamin E 1 cap PO DAILY RF: 0 pantoprazole 40 mg tablet,delayed release (DR/EC) 40 mg PO BID Qty: 60 RF: 0 Discontinued ascorbic acid (vitamin C) 500 mg capsule 500 mg PO DAILY RF: 0 Discharge Orders: Discharge Order (Routine); Ordered 06/07/21 Ordered By: Michael Gay Discharge Diet: GI Soft Discharge Activity: Increase activity as tolerated Patient Instructions: Opioid Safety Activity Restrictions/Additional Instructions: Take all meds as prescribed. Follow up with your primary care provider in 4-5 days for repeat HGB Have them arrange referral to GI for recurrent anemia, hiatal hernia. Discharge Attestations Time Spent in Discharge Care*: greater than 30 min Quality Metrics Clinical Quality Measures During this hospital stay, did patient experience: None Coding Level of Care Code Acute [facility] note Diagnoses Melena K92.1 Anemia D50.0 Anemia type: iron deficiency Iron deficiency anemia type: chronic blood loss Shortness of breath R06.02 Hiatal hernia K44.9 GERD (gastroesophageal reflux disease) K21.9 Esophagitis presence: esophagitis presence not specified
--- NOTE | 2021-06-07 13:50 | PC.NURSE ---
IV removed at this time. Patient tolerated well. Reviewed discharge with patient and at this time. Patient and verbalized understanding of discharge instructions and follow up appointments. Patient is A&Ox3. Respirations even and non-labored on room air. Patient wheel chaired to private car.
--- NOTE | 2021-06-09 14:09 | PC.SOCIAL ---
discharge follow up call made, spoke with pts , he reports pt is doing well. Pts was on his way to get prescriptions from the pharmacy. Patient and are aware of follow up appointment with pcp on 06-16-21 and at that appointment they will discuss repeat hemoglobin being drawn and discussion for GI referral. no questions of concerns voiced from patients .
== END 2021-06-07 13:50 | disposition home or self-care (01) ==
LOC: ER 18:55 → MEDSURG 21:21
PROVIDERS: Emergency Medicine; Admitting Provider Hospitalist; Emergency Provider Emergency Medicine; PCP Registered Nurse; Visit Provider Internal Medicine
DX: K92.1 Melena (principal); D50.0 Iron deficiency anemia secondary to blood loss (chronic); R06.02 Shortness of breath; K44.9 Diaphragmatic hernia without obstruction or gangrene; K21.9 Gastro-esophageal reflux disease without esophagitis; F41.9 Anxiety disorder, unspecified; F32.9 Major depressive disorder, single episode, unspecified; M19.90 Unspecified osteoarthritis, unspecified site; E78.5 Hyperlipidemia, unspecified; I10 Essential (primary) hypertension; M81.0 Age-related osteoporosis without current pathological fracture
CPT/HCPCS: 36415; 36416; 36430; 71046; 80053; 82962; 83690; 83880; 84484; 85014; 85018; 85025; 85610; 85730; 86850; 86900; 86920; 87426; 93005; 96374; 99285; C9113; G0378; J7030; J7040; P9016

== ENCOUNTER → 2021-11-29 08:59 | Outpatient (BNVA) | payer MEDICARE, SELFPAY | PROVIDERS: PCP Registered Nurse; Referring Provider Registered Nurse; Visit Provider Physician Assistant | DX: M54.50 Low back pain, unspecified (principal); Z98.1 Arthrodesis status; Z96.642 Presence of left artificial hip joint | CPT/HCPCS: 72110; 73502 ==